=== PATIENT | female | born 1960 | race African-American/Black ===

== ENCOUNTER → 2017-03-13 | Outpatient (CLI) | payer MEDICAID | LOC: RAD 10:16 | PROVIDERS: ATTEND Orthopaedic Surgery | DX: M25.552 Pain in left hip (principal); M25.551 Pain in right hip | CPT/HCPCS: 78315; A9561; Q9969 ==

== ENCOUNTER 2017-03-24 11:35 | Day surgery (SDC) | payer MEDICAID ==
[~2017-03-24 11:35] MED LIST: PROPOFOL INJ 200 MG/20 ML VIAL IV ONE
--- NOTE | 2017-03-24 13:03 | Operative Report ---
Operative Report DATE OF SURGERY: 03/24/17 Operative Report: The risks, benefits and alternatives of the procedure including risks of bleeding, perforation requiring surgery are explained to the patient detail and informed consent was obtained. The patient was taken to the endoscopy suite and placed in the left, lateral decubital position. Timeout was called. Propofol medications administered. Rectal examination was done which did not reveal any masses, tears or fissures. An Olympus videoscope was inserted into the patient's rectum. The scope was then attempted to be advanced all the way to the cecum. There was some difficulty and patient had to be placed on her back in the supine position, with abdominal pressure due to a hernia. However the cecum was visualized along with the ileocecal valve as well as the appendiceal office. Photodocumentation is obtained. Prep is fair. The scope was then sequentially pulled back the interventions of the colon including the ascending colon, hepatic flexure, transverse colon, splenic flexure, descending colon and finding to the rectosigmoid portions of the colon. Retroflexion maneuver was performed. PREOPERATIVE DIAGNOSIS: Personal history of polyp, colorectal cancer screening POSTOPERATIVE DIAGNOSIS: Large periumbilical hernia. Diverticulosis. Mild right-sided inflammation status post biopsy. Internal hemorrhoids OPERATION: Colonoscopy with biopsy SURGEON: SANA MELGOZA ANESTHESIA: LMAC TISSUE REMOVED OR ALTERED: Right side colon Mucosal specimen obtained COMPLICATIONS: None. ESTIMATED BLOOD LOSS: None. INTRAOPERATIVE FINDINGS: None. PROCEDURE: Patient tolerated the procedure well. No immediate postprocedure complications are noted. Patient is discharged in good condition. Discharge date 03/24/2017. Discharge diet: Regular. Discharge activity: Regular. 2-3 week follow-up to discuss findings 5 year surveillance colonoscopy We will wait on biopsies Patient instructed to call the office or proceed to the emergency room should there be any further problems or questions. We will need referral for surgical referral for repair of hernia
[2017-03-24 13:25] VITALS: BP 166/96
== END 2017-03-24 13:30 | disposition home or self-care (01) ==
LOC: END 11:35
PROVIDERS: ATTEND Internal Medicine Gastroenterology
PROC: 0DBF8ZX Excision of Right Large Intestine, Via Natural or Artificial Opening Endoscopic, Diagnostic (ICD-10-PCS; principal; 2017-03-24 14:00)
DX: Z12.11 Encounter for screening for malignant neoplasm of colon (principal); K57.30 Diverticulosis of large intestine without perforation or abscess without bleeding; K42.9 Umbilical hernia without obstruction or gangrene; K52.9 Noninfective gastroenteritis and colitis, unspecified; K64.8 Other hemorrhoids; I10 Essential (primary) hypertension; E11.9 Type 2 diabetes mellitus without complications; D64.9 Anemia, unspecified; Z86.73 Personal history of transient ischemic attack (TIA), and cerebral infarction without residual deficits; Z88.0 Allergy status to penicillin; Z79.84 Long term (current) use of oral hypoglycemic drugs
CPT/HCPCS: 45380; 82962; 88305 ×2; J2704; 810

== ENCOUNTER → 2017-10-03 | Outpatient (CLI) | payer MEDICAID ==
[2017-10-03 11:51] LABS: ABSOLUTE EOSINOPHILS # (AUTO) 0.2 10^3/uL (0.0-0.6); ABSOLUTE LYMPHOCYTES (AUTO) 0.8 10^3/uL (0.5-4.7); ABSOLUTE MONOCYTES (AUTO) 0.4 10^3/uL (0.1-1.4); ABSOLUTE NEUT (AUTO) 2.5 10^3/uL (1.7-8.2); BASOPHILS % (AUTO) 0.5 % (0-2); HEMATOCRIT 36.7 % (36.0-47.0); HEMOGLOBIN 12.4 g/dL (12.0-15.5); HGB HCT DIFFERENCE 0.5; LYMPHOCYTES % (AUTO) 20.4 % (13-45); MEAN CORPUSCULAR HEMOGLOBIN 28.6 pg (27.0-33.4); MEAN CORPUSCULAR HGB CONC 33.8 g/dL (32.0-36.0); MEAN CORPUSCULAR VOLUME 85 fl (80-97); MONOCYTES % (AUTO) 11.2 % (3-13); RED BLOOD COUNT 4.34 10^6/uL (3.72-5.28); RED CELL DISTRIBUTION WIDTH 14.1 % (11.5-14.0); SEGMENTED NEUTROPHILS % (AUTO) 62.9 % (42-78); WHITE BLOOD COUNT 3.9 10^3/uL (4.0-10.5)
[2017-10-03 12:32] LABS: ALANINE AMINOTRANSFERASE 34 U/L (9-52); ALBUMIN 4.6 g/dL (3.5-5.0); ALKALINE PHOSPHATASE 150 U/L (38-126); ANION GAP 11 (5-19); ASPARTATE AMINO TRANSFERASE 26 U/L (14-36); BILIRUBIN,DIRECT 0.4 mg/dL (0.0-0.4); BILIRUBIN,TOTAL 0.6 mg/dL (0.2-1.3); BLOOD UREA NITROGEN 18 mg/dL (7-20); CALCIUM 9.9 mg/dL (8.4-10.2); CARBON DIOXIDE 33 mmol/L (22-30); CHLORIDE 99 mmol/L (98-107); CHOLESTEROL 174.98 mg/dL (0-200); Direct HDL 45 mg/dL (>40); GLUCOSE 108 mg/dL (75-110); POTASSIUM 4.2 mmol/L (3.6-5.0); SODIUM 142.9 mmol/L (137-145); TOTAL PROTEIN 8.3 g/dL (6.3-8.2); TRIGLYCERIDES 113 mg/dL (<150)
[2017-10-03 12:43] LABS: DIRECT LDL 91 mg/dL (<100)
== END ==
LOC: OD 10:26
PROVIDERS: ATTEND Internal Medicine
DX: E78.00 Pure hypercholesterolemia, unspecified (principal); Z79.899 Other long term (current) drug therapy; E11.9 Type 2 diabetes mellitus without complications; I10 Essential (primary) hypertension
CPT/HCPCS: 36415; 80053; 80061; 85025

== ENCOUNTER 2018-03-31 14:39 | Emergency (ER) | payer MEDICAID ==
[2018-03-31] MEDS ORDERED: NORMAL SALINE 1000 ML 1,000 ML IV ONE (15:41)
[2018-03-31] MEDS ORDERED: ONDANSETRON HCL INJ/PF 4 MG/2 ML SDV IV ONE (15:47)
--- NOTE | 2018-03-31 15:48 | ER Document Report ---
ED General - General Chief Complaint: Vomiting Stated Complaint: WEAKNESS/VOMITING Time Seen by Provider: 03/31/18 15:31 Mode of Arrival: Medic Information source: Patient Notes: 58-year-old female with type 2 diabetes, hypertension, glaucoma, previous CVA and DVT presents with complaint of generalized weakness. Patient states that she has been experiencing nausea and vomiting for approximately 1 week. She states that she is gone many days without tolerating anything by mouth. She states that 2 days prior to arrival she started to experience diarrhea. She denies any blood in her stool or emesis. Patient states that she had a fall 4 days prior to arrival and was unable to get herself off the floor and required assistance from her aide and son. She denies any head injury, loss of consciousness. She denies chest pain, shortness of breath. TRAVEL OUTSIDE OF THE [place] IN LAST 30 DAYS: No - HPI Onset: Last week Onset/Duration: Gradual Quality of pain: No pain Associated symptoms: None, Diarrhea, Nausea, Vomiting, Weakness. denies: Chest pain, Shortness of breath Exacerbated by: Denies Relieved by: Denies Similar symptoms previously: No Recently seen / treated by doctor: Yes - Related Data Allergies/Adverse Reactions: Penicillins Allergy (Mild, Verified 03/31/18 15:03) Rash, itch Past Medical History - General Information source: Patient, [facility] Records - Social History Smoking Status: Former Smoker Frequency of alcohol use: Occasional Drug Abuse: None Lives with: Family Family History: Reviewed & Not Pertinent Patient has suicidal ideation: No Patient has homicidal ideation: No - Past Medical History Cardiac Medical History: Reports: Hx Hypertension Denies: Hx Coronary Artery Disease, Hx Heart Attack Pulmonary Medical History: Denies: Hx Asthma, Hx Bronchitis, Hx COPD, Hx Pneumonia Neurological Medical History: Reports: Hx Cerebrovascular Accident - When she had right hip sx, pt states no deficits. Denies: Hx Seizures Endocrine Medical History: Reports: Hx Diabetes Mellitus Type 2 GI Medical History: Reports: Hx Hiatal Hernia Musculoskeltal Medical History: Reports Hx Arthritis - Back and hips Past Surgical History: Reports: Hx Appendectomy, Hx Hysterectomy, Hx Orthopedic Surgery - Back x2 and bilateral hip, Hx Tubal Ligation. Denies: Hx Pacemaker - Immunizations Hx Diphtheria, Pertussis, Tetanus Vaccination: No Review of Systems - Review of Systems Notes: REVIEW OF SYSTEMS: CONSTITUTIONAL : Denies fever, chills, or sweats. Denies weight loss, recent hospitalizations. She is complaining of generalized weakness EENT: Denies visual changes, eye pain. Denies nasal or sinus congestion or discharge. Denies sore throat, oral lesions, difficulty swallowing. CARDIOVASCULAR: Denies chest pain. Denies palpitations or racing or irregular heart beat. Denies lower extremity edema. RESPIRATORY: Denies cough, cold, or chest congestion. Denies shortness of breath, difficulty breathing, or wheezing. GASTROINTESTINAL: Denies abdominal pain or distention. Denies nausea, vomiting , or diarrhea. Denies blood in vomitus, stools, or per rectum. Denies black, tarry stools. Denies constipation. GENITOURINARY: Denies difficulty urinating, painful urination, burning, frequency, blood in urine, or vaginal discharge. MUSCULOSKELETAL: Denies back or neck pain or stiffness. Denies joint pain or swelling. SKIN: Denies rash, lesions or sores. HEMATOLOGIC : Denies easy bruising or bleeding. LYMPHATIC: Denies swollen, enlarged glands. NEUROLOGICAL: Denies confusion or altered mental status. Denies passing out or loss of consciousness. Denies dizziness or lightheadedness. Denies headache. Denies weakness or paralysis or loss of use of either side. Denies problems with gait or speech. Denies sensory loss, numbness, or tingling. Denies seizures. PSYCHIATRIC: Denies anxiety or stress. Denies depression, suicidal ideation, or homicidal ideation. Physical Exam - Vital signs Vitals: Temp Pulse Resp BP Pulse Ox 100.2 F 106 H 20 154/79 H 96 03/31/18 15:00 03/31/18 15:00 03/31/18 15:00 03/31/18 15:03/31/18 15:00 - Notes Notes: PHYSICAL EXAMINATION: GENERAL: Well-appearing, well-nourished and in no acute distress. HEAD: Atraumatic, normocephalic. EYES: Pupils equal round and reactive to light, extraocular movements intact, conjunctiva are normal. ENT: Nares patent, oropharynx clear without exudates. Moist mucous membranes. NECK: Normal range of motion, supple without lymphadenopathy LUNGS: Breath sounds clear to auscultation bilaterally and equal. No wheezes rales or rhonchi. HEART: Regular rate and rhythm without murmurs ABDOMEN: Soft, nontender, nondistended abdomen. No guarding, no rebound. No masses appreciated. Female : deferred Musculoskeletal: Normal range of motion, no pitting or edema. No cyanosis. NEUROLOGICAL: Cranial nerves grossly intact. Normal speech, normal gait. Normal sensory, motor exams PSYCH: Normal mood, normal affect. SKIN: Warm, Dry, normal turgor, no rashes or lesions noted. Course - Re-evaluation Re-evalutation: Laboratory 03/31/18 03/31/18 03/31/18 17:35 17:35 17:35 WBC 10.3 RBC 3.99 Hgb 11.5 L Hct 34.3 L MCV 86 MCH 28.8 MCHC 33.5 RDW 13.9 Plt Count 197 Seg Neutrophils % 85.1 H Lymphocytes % 7.3 L Monocytes % 6.8 Eosinophils % 0.6 Basophils % 0.2 Absolute Neutrophils 8.8 H Absolute Lymphocytes 0.8 Absolute Monocytes 0.7 Absolute Eosinophils 0.1 Absolute Basophils 0.0 D-Dimer Sodium 135.8 L Potassium 4.1 Chloride 90 L Carbon Dioxide 35 H Anion Gap 11 BUN 23 H Creatinine 1.05 Est GFR ( Amer) > 60 Est GFR (Non-Af Amer) 54 L Glucose 270 H Calcium 9.3 Total Bilirubin 0.7 Direct Bilirubin 0.5 H Neonat Total Bilirubin Not Reportable Neonat Direct Bilirubin Not Reportable Neonat Indirect Bili Not Reportable AST 28 ALT 34 Alkaline Phosphatase 149 H Creatine Kinase 36 CK-MB (CK-2) 0.83 Troponin I 0.034 NT-Pro-B Natriuret Pep 1020 H Total Protein 7.6 Albumin 3.3 L Lipase 60.6 03/31/18 17:35 WBC RBC Hgb Hct MCV MCH MCHC RDW Plt Count Seg Neutrophils % Lymphocytes % Monocytes % Eosinophils % Basophils % Absolute Neutrophils Absolute Lymphocytes Absolute Monocytes Absolute Eosinophils Absolute Basophils D-Dimer 17.87 H Sodium Potassium Chloride Carbon Dioxide Anion Gap BUN Creatinine Est GFR ( Amer) Est GFR (Non-Af Amer) Glucose Calcium Total Bilirubin Direct Bilirubin Neonat Total Bilirubin Neonat Direct Bilirubin Neonat Indirect Bili AST ALT Alkaline Phosphatase Creatine Kinase CK-MB (CK-2) Troponin I NT-Pro-B Natriuret Pep Total Protein Albumin Lipase Head CT 03/31/18 15:47 IMPRESSION: Microvascular ischemia with atrophy. Left middle cerebral artery infarct. No acute intracranial imaging findings. EVIDENCE OF ACUTE STROKE: NO. Chest/Abdomen CTA 03/31/18 16:58 IMPRESSION: Saddle embolus with thrombus in the lower lobe and upper lobe pulmonary arteries. Lovenox was administered. 03/31/18 19:44 Family snd patient informed of the CT findings of a saddle embolus. Requesting transfer to [facility]. 03/31/18 19:45 03/31/18 20:20 Patient accepted by [facility] by Dr. Rebollar. 03/31/18 20:21 58-year-old female with type 2 diabetes, hypertension, glaucoma, previous CVA and DVT presents with complaint of generalized weakness. Patient states that she has been experiencing nausea and vomiting for approximately 1 week. She states that she is gone many days without tolerating anything food or liquid. She states that 2 days prior to arrival she started to experience diarrhea. She denies any blood in her stool or emesis. Patient states that she had a fall 4 days prior to arrival and was unable to get herself off the floor and required assistance from her aide and son. She denies any head injury, loss of consciousness. She denies chest pain, shortness of breath. Patient was seen by myself upon arrival. Vital signs were reviewed. Patient is tachycardic, hypertensive, tachypneic. But not hypoxic or febrile. Patient does not appear toxic or dehydrated. They are in no acute distress. Previous medical records and nursing notes reviewed. Patient has a normal physical exam. No evidence of DVT. She denies any recent travel, surgery, estrogen use, cancer history. Her last DVT was approximately 2 years ago and after a hip replacement surgery she is not currently on any blood thinning medications. Patient does admit to being less active over the last few weeks. EKG was obtained which showed diffuse deep T-wave inversion in the anterior and lateral leads. CTA was obtained and significant for a saddle embolus with thrombus in the lower lobe and upper lobe pulmonary arteries. Lovenox was administered. She has remained stable throughout her ED course. Patient will be transferred via rapid transport to [facility]. 03/31/18 20:22 - Vital Signs Vital signs: Temp Pulse Resp BP Pulse Ox 99.8 F 106 H 27 H 129/60 H 95 03/31/18 18:03 03/31/18 15:00 03/31/18 21:42 03/31/18 21:42 03/31/18 21:42 - Laboratory Result Diagrams: 03/31/18 17:35 03/31/18 17:35 Laboratory results interpreted by me: 03/31/18 03/31/18 03/31/18 17:35 17:35 17:35 Hgb 11.5 L Hct 34.3 L Seg Neutrophils % 85.1 H Lymphocytes % 7.3 L Absolute Neutrophils 8.8 H D-Dimer Sodium 135.8 L Chloride 90 L Carbon Dioxide 35 H BUN 23 H Est GFR (Non-Af Amer) 54 L Glucose 270 H Direct Bilirubin 0.5 H Alkaline Phosphatase 149 H NT-Pro-B Natriuret Pep 1020 H Albumin 3.3 L 03/31/18 17:35 Hgb Hct Seg Neutrophils % Lymphocytes % Absolute Neutrophils D-Dimer 17.87 H Sodium Chloride Carbon Dioxide BUN Est GFR (Non-Af Amer) Glucose Direct Bilirubin Alkaline Phosphatase NT-Pro-B Natriuret Pep Albumin - Diagnostic Test Radiology reviewed: Image reviewed, Reports reviewed - EKG Interpretation by Me EKG shows normal: Sinus rhythm Rate: Tachycardia Voltage: Consistant with LVH When compared to previous EKG there are: Other - Diffuse T-wave inversions in most leads. Critical Care Note - Critical Care Note Total time excluding time spent on procedures (mins): 35 - minutes of critical care time spent in direct contact evaluating and reevaluating the patient, treating symptoms, reviewing labs and studies and speaking with family and consultants excluding any procedures Discharge - Discharge Clinical Impression: Elevated brain natriuretic peptide (BNP) level, Weakness Saddle embolism of pulmonary artery Qualifiers: Chronicity: acute Acute cor pulmonale presence: without acute cor pulmonale Qualified Code(s): I26.92 - Saddle embolus of pulmonary artery without acute cor pulmonale Condition: Fair Disposition: [facility]
[2018-03-31 18:01] LABS: ABSOLUTE EOSINOPHILS # (AUTO) 0.1 10^3/uL (0.0-0.6); ABSOLUTE LYMPHOCYTES (AUTO) 0.8 10^3/uL (0.5-4.7); ABSOLUTE MONOCYTES (AUTO) 0.7 10^3/uL (0.1-1.4); ABSOLUTE NEUT (AUTO) 8.8 10^3/uL (1.7-8.2); BASOPHILS % (AUTO) 0.2 % (0-2); EOSINOPHILS % (AUTO) 0.6 % (0-6); HEMATOCRIT 34.3 % (36.0-47.0); HEMOGLOBIN 11.5 g/dL (12.0-15.5); LYMPHOCYTES % (AUTO) 7.3 % (13-45); MEAN CORPUSCULAR HEMOGLOBIN 28.8 pg (27.0-33.4); MEAN CORPUSCULAR HGB CONC 33.5 g/dL (32.0-36.0); MEAN CORPUSCULAR VOLUME 86 fl (80-97); MONOCYTES % (AUTO) 6.8 % (3-13); PLATELET COUNT 197 10^3/uL (150-450); RED BLOOD COUNT 3.99 10^6/uL (3.72-5.28); RED CELL DISTRIBUTION WIDTH 13.9 % (11.5-14.0); SEGMENTED NEUTROPHILS % (AUTO) 85.1 % (42-78); TOTAL CELLS COUNTED % (AUTO) 100 %; WHITE BLOOD COUNT 10.3 10^3/uL (4.0-10.5)
[2018-03-31 18:07] LABS: ALANINE AMINOTRANSFERASE 34 U/L (9-52); ALBUMIN 3.3 g/dL (3.5-5.0); ALKALINE PHOSPHATASE 149 U/L (38-126); ANION GAP 11 (5-19); ASPARTATE AMINO TRANSFERASE 28 U/L (14-36); BILIRUBIN,DIRECT 0.5 mg/dL (0.0-0.4); BILIRUBIN,TOTAL 0.7 mg/dL (0.2-1.3); BLOOD UREA NITROGEN 23 mg/dL (7-20); CALCIUM 9.3 mg/dL (8.4-10.2); CARBON DIOXIDE 35 mmol/L (22-30); CHLORIDE 90 mmol/L (98-107); CREATINE KINASE 36 U/L (30-135); GLUCOSE 270 mg/dL (75-110); LIPASE 60.6 U/L (23-300); POTASSIUM 4.1 mmol/L (3.6-5.0); SODIUM 135.8 mmol/L (137-145); TOTAL PROTEIN 7.6 g/dL (6.3-8.2)
[2018-03-31 18:19] LABS: CREATINE KINASE MB 0.83 ng/mL (<4.55)
[2018-03-31 18:24] LABS: TROPONIN I 0.034 ng/mL
[2018-03-31] MEDS ORDERED: ENOXAPARIN SODIUM INJ 150 MG/1 ML DISP.SYRIN SUBCUT ONE (19:20)
--- NOTE | 2018-03-31 19:33 | RADIOLOGY REPORT (SQ) ---
EXAM DESCRIPTION: CTA CHEST COMPLETED DATE/TIME: 03/31/2018 6:57 pm REASON FOR STUDY: tachycardia/ ams/ ekg changes COMPARISON: None. TECHNIQUE: CT scan of the chest performed using helical scanning technique with dynamic intravenous contrast injection. Images reviewed with lung, soft tissue and bone windows. Reconstructed coronal and sagittal MPR images reviewed. Additional 3 dimensional post-processing performed to develop Maximal Intensity Projection images (GA P). All images stored on PACS. All CT scanners at this facility use dose modulation, iterative reconstruction, and/or weight based d osing when appropriate to reduce radiation dose to as low as reasonably achievable (ALARA). [facility]: Dose Right [facility]: CareDose [facility]: Dose Right [facility]: Teradose 4D [facility]: [employer] CONTRAST TYPE AND DOSE: contrast/concentration: Isovue 370.00 mg/ml; Total Contrast Delivered: 65.0 ml; Total Saline Delivered: 102.0 ml Contrast bolus optimized for the pulmonary arteries. Not diagnostic for the aorta. RENAL FUNCTION: BUN 23 creatinine 1.05 RADIATION DOSE: CT Rad equipment meets quality standard of care and radiation dose reduction techniq ues were employed. CTDIvol: 16.5 - 29.8 mGy. DLP: 1013 mGy-cm. . LIMITATIONS: None. FINDINGS: LUNGS AND PLEURA: No masses, infiltrates, pneumothorax. No pleural effusions, calcificati ons. AORTA AND GREAT VESSELS: No aneurysm. Contrast bolus not optimized for the aorta. HEART: No pericardial effusion. Moderate to marked coronary artery calcifications. PULMONARY ARTERIES: A saddle embolus is present. Thrombus is present in the lower lobe and upper lob e pulmonary arteries. HILAR AND MEDIASTINAL STRUCTURES: No identified masses or abnormal nodes. HARDWARE: None in the chest. UPPER ABDOMEN: No significant findings. Limited exam. THYROID AND OTHER SOFT TISSUES: No masses. No adenopathy. BONES: Lower thoracic/lumbar rods. 3D MIPS: Confirm above findings. OTHER: No other significant finding. IMPRESSION: Saddle embolus with thrombus in the lower lobe and upper lobe pulmonary arteries. COMMENT: Quality ID # [id number]: Final reports with documentation of one or more dose reduction techniques (e.g., Automated exposure control, adjustment of the mA and/or kV according to patient size, use of iterative reconstruction technique) TECHNICAL DOCUMENTATION: JOB ID: [id number]- All Rights Reserved Reading location - IP/workstation name: [email or web address]
--- NOTE | 2018-03-31 19:37 | RADIOLOGY REPORT (SQ) ---
EXAM DESCRIPTION: CT HEAD WITHOUT COMPLETED DATE/TIME: 03/31/2018 6:57 pm REASON FOR STUDY: Unwitnessed fall COMPARISON: None. TECHNIQUE: Axial images acquired through the brain without intravenous contrast. Images reviewed wi th bone, brain and subdural windows. Additional sagittal and coronal reconstructions were generated. Images stored on PACS. All CT scanners at this facility use dose modulation, iterative reconstruction, and/or weight based d osing when appropriate to reduce radiation dose to as low as reasonably achievable (ALARA). [facility]: Dose Right [facility]: CareDose [facility]: Dose Right [facility]: Teradose 4D [facility]: [employer] RADIATION DOSE: CT Rad equipment meets quality standard of care and radiation dose reduction techniq ues were employed. CTDIvol: 53.2 mGy. DLP: 991 mGy-cm. mGy. LIMITATIONS: None. FINDINGS: VENTRICLES: Prominent. CEREBRUM: Cortical atrophy. Encephalomalacia in the distribution of the left middle cerebral artery. No acute hemorrhage or infarction. Areas of low density in the white matter most likely chronic sma ll vessel ischemic changes. CEREBELLUM: No masses. No hemorrhage. No alteration of density. No evidence for acute infarction. EXTRAAXIAL SPACES: No fluid collections. No masses. ORBITS AND GLOBE: No intra- or extraconal masses. Normal contour of globe without masses. CALVARIUM: No fracture. PARANASAL SINUSES: No fluid or mucosal thickening. SOFT TISSUES: No mass or hematoma. OTHER: No other significant finding. IMPRESSION: Microvascular ischemia with atrophy. Left middle cerebral artery infarct. No acute int racranial imaging findings. EVIDENCE OF ACUTE STROKE: NO. COMMENT: Quality ID # [id number]: Final reports with documentation of one or more dose reduction techniques (e.g., Automated exposure control, adjustment of the mA and/or kV according to patient size, use of iterative reconstruction technique) TECHNICAL DOCUMENTATION: JOB ID: [id number] [email or web address]- All Rights Reserved Reading location - IP/workstation name: [email or web address]
[2018-03-31 21:44] VITALS: BP 129/60
--- NOTE | 2018-03-31 23:43 | EKG REPORT ---
SEVERITY:- ABNORMAL ECG - SINUS TACHYCARDIA LVH WITH SECONDARY REPOLARIZATION ABNORMALITY ABNORMAL T, PROBABLE ISCHEMIA, LATERAL LEADS : Confirmed by: Mannie Mullen 31-Mar-2018 23:41:38
== END 2018-03-31 21:55 | disposition short-term general hospital (02) ==
LOC: ER 14:39
DX: I26.02 Saddle embolus of pulmonary artery with acute cor pulmonale (principal); R79.89 Other specified abnormal findings of blood chemistry; I10 Essential (primary) hypertension; E11.9 Type 2 diabetes mellitus without complications; R11.2 Nausea with vomiting, unspecified; R19.7 Diarrhea, unspecified; R00.0 Tachycardia, unspecified; R06.82 Tachypnea, not elsewhere classified; I67.82 Cerebral ischemia; Z91.81 History of falling; Z88.0 Allergy status to penicillin; Z87.891 Personal history of nicotine dependence; Z86.73 Personal history of transient ischemic attack (TIA), and cerebral infarction without residual deficits; Z86.718 Personal history of other venous thrombosis and embolism
CPT/HCPCS: 93005; 99291; 96372; 96360; 36415; 82553; 82550; 83690; 85025; 80053; 84484; 85379; 83880; 70450; 71275; 93010; J3490; J2405; J7030

== ENCOUNTER 2018-10-05 16:52 | Emergency (ER) | payer MEDICAID ==
[2018-10-05] MEDS ORDERED: ASPIRIN 81 MG TABLET, CHEWABLE PO ONE (18:31)
--- NOTE | 2018-10-05 18:32 | ER Document Report ---
ED Medical Screen (RME) - General Chief Complaint: Chest Pain Stated Complaint: CHEST PAIN Time Seen by Provider: 10/05/18 18:26 Mode of Arrival: Wheelchair Information source: Patient Notes: 58-year-old female with a history of VTE (Eliqui), diabetes, CVA who presents to the emergency room after episode of chest pain between 130 and 3:15 PM today. Patient states that it was sometimes sharp and sometimes dull. She states she felt short of breath at the time. Currently she is been chest pain- free. TRAVEL OUTSIDE OF THE [place] IN LAST 30 DAYS: No - Related Data Allergies/Adverse Reactions: Penicillins Allergy (Mild, Verified 03/31/18 15:03) Rash, itch Past Medical History - Past Medical History Cardiac Medical History: Reports: Hx Hypertension Denies: Hx Coronary Artery Disease, Hx Heart Attack Pulmonary Medical History: Denies: Hx Asthma, Hx Bronchitis, Hx COPD, Hx Pneumonia Neurological Medical History: Reports: Hx Cerebrovascular Accident - When she had right hip sx, pt states no deficits. Denies: Hx Seizures Endocrine Medical History: Reports: Hx Diabetes Mellitus Type 2 Renal/ Medical History: Denies: Hx Peritoneal Dialysis GI Medical History: Reports: Hx Hiatal Hernia Musculoskeltal Medical History: Reports Hx Arthritis - Back and hips Past Surgical History: Reports: Hx Appendectomy, Hx Hysterectomy, Hx Orthopedic Surgery - Back x2 and bilateral hip, Hx Tubal Ligation. Denies: Hx Pacemaker - Immunizations Hx Diphtheria, Pertussis, Tetanus Vaccination: No Physical Exam - Vital signs Vitals: Temp Pulse Resp BP Pulse Ox 98.5 F 98 14 155/90 H 100 10/05/18 17:11 10/05/18 17:11 10/05/18 17:11 10/05/18 17:11 10/05/18 17:11 Course - Vital Signs Vital signs: Temp Pulse Resp BP Pulse Ox 98.5 F 98 14 155/90 H 100 10/05/18 17:11 10/05/18 17:11 10/05/18 17:11 10/05/18 17:11 10/05/18 17:11
--- NOTE | 2018-10-05 18:38 | EKG REPORT ---
SEVERITY:- ABNORMAL ECG - SINUS RHYTHM PROBABLE LVH WITH SECONDARY REPOL ABNRM : Confirmed by: Mannie Mullen 05-Oct-2018 18:37:04
--- NOTE | 2018-10-05 19:03 | RADIOLOGY REPORT (SQ) ---
EXAM DESCRIPTION: CHEST SINGLE VIEW COMPLETED DATE/TIME: 10/05/2018 6:54 pm REASON FOR STUDY: cp COMPARISON: 12/24/2010 EXAM PARAMETERS: NUMBER OF VIEWS: One view. TECHNIQUE: Single frontal radiographic view of the chest acquired. RADIATION DOSE: NA LIMITATIONS: None. FINDINGS: LUNGS AND PLEURA: No opacities, masses or pneumothorax. No pleural effusion. MEDIASTINUM AND HILAR STRUCTURES: No masses. Contour normal. HEART AND VASCULAR STRUCTURES: Heart normal in size. Normal vasculature. BONES: No acute findings. HARDWARE: None in the chest. OTHER: No other significant finding. IMPRESSION: NO ACUTE RADIOGRAPHIC FINDING IN THE CHEST. TECHNICAL DOCUMENTATION: JOB ID: [id number] [employer]- All Rights Reserved Reading location - IP/workstation name: [email or web address]
[2018-10-05 19:20] LABS: ABSOLUTE EOSINOPHILS # (AUTO) 0.1 10^3/uL (0.0-0.6); ABSOLUTE LYMPHOCYTES (AUTO) 0.7 10^3/uL (0.5-4.7); ABSOLUTE MONOCYTES (AUTO) 0.2 10^3/uL (0.1-1.4); ABSOLUTE NEUT (AUTO) 2.1 10^3/uL (1.7-8.2); BASOPHILS % (AUTO) 0.4 % (0-2); HEMATOCRIT 35.6 % (36.0-47.0); HEMOGLOBIN 11.8 g/dL (12.0-15.5); LYMPHOCYTES % (AUTO) 21.9 % (13-45); MEAN CORPUSCULAR HEMOGLOBIN 28.3 pg (27.0-33.4); MEAN CORPUSCULAR HGB CONC 33.2 g/dL (32.0-36.0); MEAN CORPUSCULAR VOLUME 85 fl (80-97); MONOCYTES % (AUTO) 7.6 % (3-13); PLATELET COUNT 150 10^3/uL (150-450); RED BLOOD COUNT 4.18 10^6/uL (3.72-5.28); SEGMENTED NEUTROPHILS % (AUTO) 66.1 % (42-78); TOTAL CELLS COUNTED % (AUTO) 100 %; WHITE BLOOD COUNT 3.3 10^3/uL (4.0-10.5)
[2018-10-05 19:28] LABS: ALANINE AMINOTRANSFERASE 22 U/L (9-52); ALBUMIN 4.6 g/dL (3.5-5.0); ALKALINE PHOSPHATASE 183 U/L (38-126); ANION GAP 11 (5-19); ASPARTATE AMINO TRANSFERASE 40 U/L (14-36); BILIRUBIN,DIRECT 0.4 mg/dL (0.0-0.4); BILIRUBIN,TOTAL 0.7 mg/dL (0.2-1.3); BLOOD UREA NITROGEN 17 mg/dL (7-20); CALCIUM 9.9 mg/dL (8.4-10.2); CARBON DIOXIDE 32 mmol/L (22-30); CHLORIDE 101 mmol/L (98-107); CREATINE KINASE 35 U/L (30-135); GLUCOSE 150 mg/dL (75-110); POTASSIUM 3.6 mmol/L (3.6-5.0); SODIUM 144.4 mmol/L (137-145); TOTAL PROTEIN 8.9 g/dL (6.3-8.2)
[2018-10-05 19:40] LABS: CREATINE KINASE MB 0.51 ng/mL (<4.55)
[2018-10-05 19:41] LABS: TROPONIN I < 0.012 ng/mL
--- NOTE | 2018-10-05 22:52 | ER Document Report ---
ED General - General Chief Complaint: Chest Pain Stated Complaint: CHEST PAIN Time Seen by Provider: 10/05/18 18:26 Mode of Arrival: Wheelchair Notes: Patient is a 58-year-old female who comes in complaining of intermittent chest pain over the last week. No history of heart disease or lung problems. Patient does have a history of clots in her legs and has been on Eliquis since April. Denies missing any doses. Denies any trouble breathing. Pain is often worse with movement. Patient denies any recent falls or trauma. No other symptoms. Mostly right-sided. TRAVEL OUTSIDE OF THE [place] IN LAST 30 DAYS: No - Related Data Allergies/Adverse Reactions: Penicillins Allergy (Mild, Verified 03/31/18 15:03) Rash, itch Past Medical History - General Information source: Patient - Social History Smoking Status: Never Smoker Chew tobacco use (# tins/day): No Frequency of alcohol use: None Drug Abuse: None Family History: Reviewed & Not Pertinent Patient has suicidal ideation: No Patient has homicidal ideation: No - Past Medical History Cardiac Medical History: Reports: Hx Hypertension Denies: Hx Coronary Artery Disease, Hx Heart Attack Pulmonary Medical History: Denies: Hx Asthma, Hx Bronchitis, Hx COPD, Hx Pneumonia Neurological Medical History: Reports: Hx Cerebrovascular Accident - When she had right hip sx, pt states no deficits. Denies: Hx Seizures Endocrine Medical History: Reports: Hx Diabetes Mellitus Type 2 Renal/ Medical History: Denies: Hx Peritoneal Dialysis GI Medical History: Reports: Hx Hiatal Hernia Musculoskeletal Medical History: Reports Hx Arthritis - Back and hips Past Surgical History: Reports: Hx Appendectomy, Hx Hysterectomy, Hx Orthopedic Surgery - Back x2 and bilateral hip, Hx Tubal Ligation. Denies: Hx Pacemaker - Immunizations Hx Diphtheria, Pertussis, Tetanus Vaccination: No Review of Systems - Review of Systems Constitutional: No symptoms reported EENT: No symptoms reported Cardiovascular: See HPI Respiratory: No symptoms reported Gastrointestinal: No symptoms reported Genitourinary: No symptoms reported Female Genitourinary: No symptoms reported Musculoskeletal: No symptoms reported Skin: No symptoms reported Hematologic/Lymphatic: No symptoms reported Neurological/Psychological: No symptoms reported Physical Exam - Vital signs Vitals: Temp Pulse Resp BP Pulse Ox 98.5 F 98 14 155/90 H 100 10/05/18 17:11 10/05/18 17:11 10/05/18 17:11 12/03/18 17:11 10/05/18 17:11 Interpretation: Normal - General General appearance: Appears well, Alert - HEENT Head: Normocephalic, Atraumatic Eyes: Normal Pupils: PERRL - Respiratory Respiratory status: No respiratory distress Chest status: Nontender Breath sounds: Normal Chest palpation: Normal - Cardiovascular Rhythm: Regular Heart sounds: Normal auscultation Murmur: No - Abdominal Inspection: Normal Distension: No distension Bowel sounds: Normal Tenderness: Nontender Organomegaly: No organomegaly - Back Back: Normal, Nontender - Extremities General upper extremity: Normal inspection, Nontender, Normal color, Normal ROM , Normal temperature General lower extremity: Normal inspection, Nontender, Normal color, Normal ROM , Normal temperature, Normal weight bearing. No: Hiro's sign - Neurological Neuro grossly intact: Yes Cognition: Normal Orientation: AAOx4 Zachariah Coma Scale Eye Opening: Spontaneous [place] Coma Scale Verbal: Oriented [place] Coma Scale Motor: Obeys Commands Wellington Coma Scale Total: 15 Speech: Normal Motor strength normal: LUE, RUE, LLE, RLE Sensory: Normal - Psychological Associated symptoms: Normal affect, Normal mood - Skin Skin Temperature: Warm Skin Moisture: Dry Skin Color: Normal Course - Re-evaluation Re-evalutation: 10/05/18 Patient with no chest pain in ER. No acute findings on EKG. Troponin negative x2. Intermittent chest pain. History of DVT but patient is on Eliquis and has been on Eliquis with no new leg swelling. Exam is benign. Patient is at baseline. Pulses are intact. No pitting edema of legs bilaterally. Patient is to follow-up with her doctor this week and return if she has any further concerns. Understands agrees with plan. Stable for discharge. - Vital Signs Vital signs: Temp Pulse Resp BP Pulse Ox 98.7 F 98 19 149/80 H 98 10/05/18 23:04 10/05/18 17:11 10/05/18 23:04 10/05/18 23:04 10/05/18 23:04 - Laboratory Result Diagrams: 10/05/18 19:02 10/05/18 19:02 Laboratory results interpreted by me: 10/05/18 10/05/18 19:02 19:02 WBC 3.3 L Hgb 11.8 L Hct 35.6 L Carbon Dioxide 32 H Glucose 150 H AST 40 H Alkaline Phosphatase 183 H Total Protein 8.9 H - Diagnostic Test Radiology reviewed: Reports reviewed Discharge - Discharge Clinical Impression: Chest pain Qualifiers: Chest pain type: unspecified Qualified Code(s): R07.9 - Chest pain, unspecified Condition: Stable Disposition: HOME, SELF-CARE Instructions: Chest Pain of Unclear Cause ([facility]) Additional Instructions: Please follow-up with your doctor this week. Please continue to take your blood thinner as prescribed. Return immediately if you have any worsening concerns or symptoms. Referrals: SEA EATON MD [Primary Care Provider] - Follow up tomorrow
[2018-10-05 23:38] VITALS: BP 149/80
== END 2018-10-05 23:20 | disposition home or self-care (01) ==
LOC: ER 16:52
DX: R07.9 Chest pain, unspecified (principal); I10 Essential (primary) hypertension; E11.9 Type 2 diabetes mellitus without complications
CPT/HCPCS: 36415; 71045; 80053; 82550; 82553; 84484; 85025; 93005; 93010; 99285

== ENCOUNTER 2019-10-15 20:27 | Observation (INO) | payer MEDICAID ==
[2019-10-16] MEDS ORDERED: MORPHINE SULFATE 10 MG/ML INJ IV ONE (00:20)
--- NOTE | 2019-10-16 00:40 | ER Document Report ---
ED Extremity Problem, Lower - General TRAVEL OUTSIDE OF THE [place] IN LAST 30 DAYS: No <NAVARROADELAIDAPRATIK R - Last Filed: 10/16/19 07:49> <BRADFORD DIOP M - Last Filed: 10/16/19 15:18> - General Chief Complaint: Leg Pain Stated Complaint: LEG PAIN Time Seen by Provider: 10/15/19 23:58 Primary Care Provider: SEA EATON MD [Primary Care Provider] - Follow up as needed Notes: 59-year-old female presents with bilateral lower leg pain for the past few days. Patient had 3 teeth removed on Friday. Patient states that the right leg is worse than the left leg. Patient denies any injuries. Patient denies any fever. Patient states it is painful to walk on her legs. Patient denies any chest pain or shortness of breath. (PRATIK NAVARRO) - Related Data Allergies/Adverse Reactions: Penicillins Allergy (Mild, Verified 03/31/18 15:03) Rash, itch Past Medical History - Social History Smoking Status: Unknown if Ever Smoked Family History: Reviewed & Not Pertinent Patient has suicidal ideation: No Patient has homicidal ideation: No - Past Medical History Cardiac Medical History: Reports: Hx Hypertension Denies: Hx Coronary Artery Disease, Hx Heart Attack Pulmonary Medical History: Denies: Hx Asthma, Hx Bronchitis, Hx COPD, Hx Pneumonia Neurological Medical History: Reports: Hx Cerebrovascular Accident - When she had right hip sx, pt states no deficits. Denies: Hx Seizures Endocrine Medical History: Reports: Hx Diabetes Mellitus Type 2 Renal/ Medical History: Denies: Hx Peritoneal Dialysis GI Medical History: Reports: Hx Hiatal Hernia Musculoskeletal Medical History: Reports Hx Arthritis - Back and hips Past Surgical History: Reports: Hx Appendectomy, Hx Hysterectomy, Hx Orthopedic Surgery - Back x2 and bilateral hip, Hx Tubal Ligation. Denies: Hx Pacemaker - Immunizations Hx Diphtheria, Pertussis, Tetanus Vaccination: No <PRATIK NAVARRO - Last Filed: 10/16/19 07:49> Review of Systems <PRATIK NAVARRO - Last Filed: 10/16/19 07:49> - Review of Systems Notes: Constitutional: Negative for fever. HENT: Negative for sore throat. Eyes: Negative for visual changes. Cardiovascular: Negative for chest pain. Respiratory: Negative for shortness of breath. Gastrointestinal: Negative for abdominal pain, vomiting or diarrhea. Genitourinary: Negative for dysuria. Musculoskeletal: Positive for bilateral leg pain. Negative for back pain. Skin: Negative for rash. Neurological: Negative for headaches, weakness or numbness. 10 point ROS negative except as marked above and in HPI. (PRATIK NAVARRO) Physical Exam <PRATIK NAVARRO - Last Filed: 10/16/19 07:49> - Vital signs Vitals: Temp Resp 98.4 F 16 10/15/19 20:28 10/15/19 20:28 - Notes Notes: GENERAL: Well-appearing, well-nourished and in no acute distress. HEAD: Atraumatic, normocephalic. EYES: Pupils equal round and reactive to light, extraocular movements intact, sclera anicteric, conjunctiva are normal. NECK: Normal range of motion, supple without lymphadenopathy or JVD. LUNGS: Breath sounds clear to auscultation bilaterally and equal. No wheezes rales or rhonchi. HEART: Regular rate and rhythm without murmurs, rubs or gallops. ABDOMEN: Soft, nontender, normoactive bowel sounds. No guarding, no rebound. No masses appreciated. EXTREMITIES: Normal range of motion, no pitting or edema. No clubbing or cyanosis. Bilateral legs: Mild swelling, no erythema, not hot to touch, nontender to palpation, distal pedal pulses 2+ NEUROLOGICAL: Cranial nerves II through XII grossly intact. Normal speech, normal gait. PSYCH: Normal mood, normal affect. SKIN: Warm, Dry, normal turgor, no rashes or lesions noted. (PRATIK NAVARRO) Course - Laboratory Result Diagrams: 10/16/19 00:56 10/16/19 00:56 <PRATIK NAVARRO - Last Filed: 10/16/19 07:49> - Laboratory Result Diagrams: 10/16/19 00:56 10/16/19 00:56 <BRADFORD DIOP - Last Filed: 10/16/19 15:18> - Re-evaluation Re-evalutation: 10/16/19 59-year-old female presents with bilateral lower leg pain for the past few days. Patient recently had surgery to her on Friday. Patient is nontoxic, well-appearing. Patient's legs are mildly swollen with no erythema/hot to touch. Distal neurovascular intact. X-rays of tib-fib bilaterally ordered. Ultrasound duplex ordered. Lab work also ordered. Morphine ordered for pain control. 10/16/19 01:30 Hemoglobin 6.9. 2 units of RBC ordered. (RAYPRATIK R) 10/16/19 8:14 Assumed care of patient from MONICA Navarro. We are pending 2 units of blood to be given for the patient for a hemoglobin of 6.9. As well as Doppler study of bilateral legs. Patient apparently had a tooth extraction on Friday and has been having bleeding from the mouth with clotting for several days. Today she is not bleeding nearly as much or at all in the emergency department. She does have a history of DVT and is on Eliquis 5 mg twice daily typically. She did stop the Eliquis per her daughter for at least 1 day only for the extractions. She has resumed the Eliquis since then. Daughter is not completely sure if she held the Eliquis for longer or not. Attempts to get in touch with dentist who performed the extractions were unsuccessful. Received report from rn cardiovascular about DVT study. There is an acute popliteal DVT in the right leg. Discussed the patient with Dr. Peterson, ER attending. We agree that since the patient is requiring blood but also is going to be needing treatment for DVT, that she will need admission to the hospital. Spoke with MONICA ribeiro, hospitalist MONICA. He agrees with plan for admission. He is aware of patient's hemoglobin and hematocrit today as well as acute kidney injury and also of the acute DVT in her leg. He is aware that patient is getting 2 units of blood and we are still pending a repeat CBC. He is aware of her tooth extraction and that she has stasis in her mouth currently. He is also aware that she had a negative Hemoccult on my exam today. He would like for the patient to go to a telemetry bed and he will see her in the emergency department shortly. Impression: Anemia with weakness with acute DVT. Plan for admission for further management of the patient. (BRADFORD DIOP) - Vital Signs Vital signs: Temp Pulse Resp BP Pulse Ox 98.5 F 98 19 130/69 H 99 10/16/19 13:17 10/16/19 13:10 10/16/19 13:17 10/16/19 13:17 10/16/19 13:10 - Laboratory Laboratory results interpreted by me: 10/16/19 10/16/19 10/16/19 00:56 00:56 00:56 RBC 2.34 L Hgb 6.9 L Hct 20.5 L RDW 15.2 H Plt Count 109 L PT 17.5 H BUN 58 H Creatinine 1.93 H Est GFR ( Amer) 32 L Est GFR (MDRD) Non-Af 26 L Glucose 290 H AST 43 H Albumin 3.2 L Crossmatch 10/16/19 03:51 RBC Hgb Hct RDW Plt Count PT BUN Creatinine Est GFR ( Amer) Est GFR (MDRD) Non-Af Glucose AST Albumin Crossmatch See Detail Discharge <PRATIK NAVARRO - Last Filed: 10/16/19 07:49> - Discharge Admitting Provider: Tim (Hospitalist) Unit Admitted: Telemetry <BRADFORD DIOP - Last Filed: 10/16/19 15:18> - Discharge Clinical Impression: Acute deep vein thrombosis of right popliteal vein Anemia Qualifiers: Anemia type: unspecified type Qualified Code(s): D64.9 - Anemia, unspecified Condition: Stable Disposition: ADMITTED INPATIENT Referrals: SEA EATON MD [Primary Care Provider] - Follow up as needed
[2019-10-16 01:10] LABS: ABSOLUTE LYMPHOCYTES (AUTO) 1.1 10^3/uL (0.5-4.7); ABSOLUTE MONOCYTES (AUTO) 0.4 10^3/uL (0.1-1.4); ABSOLUTE NEUT (AUTO) 5.3 10^3/uL (1.7-8.2); BASOPHILS % (AUTO) 0.2 % (0-2); HEMATOCRIT 20.5 % (36.0-47.0); LYMPHOCYTES % (AUTO) 16.7 % (13-45); MEAN CORPUSCULAR HEMOGLOBIN 29.3 pg (27.0-33.4); MEAN CORPUSCULAR HGB CONC 33.5 g/dL (32.0-36.0); MEAN CORPUSCULAR VOLUME 88 fl (80-97); MONOCYTES % (AUTO) 5.7 % (3-13); PLATELET COUNT 109 10^3/uL (150-450); RED BLOOD COUNT 2.34 10^6/uL (3.72-5.28); RED CELL DISTRIBUTION WIDTH 15.2 % (11.5-14.0); SEGMENTED NEUTROPHILS % (AUTO) 77.4 % (42-78); TOTAL CELLS COUNTED % (AUTO) 100 %; WHITE BLOOD COUNT 6.9 10^3/uL (4.0-10.5)
[2019-10-16 01:15] LABS: HEMOGLOBIN 6.9 g/dL (12.0-15.5)
[2019-10-16 01:17] LABS: INTERNATIONAL RATION (INR) 1.42; PROTHROMBIN TIME 17.5 SEC (11.4-15.4)
[2019-10-16 01:18] LABS: PARTIAL THROMBOPLASTIN TIME 32.6 SEC (23.5-35.8)
[2019-10-16 01:22] LABS: ALBUMIN 3.2 g/dL (3.5-5.0); ALKALINE PHOSPHATASE 118 U/L (38-126); ANION GAP 12 (5-19); ASPARTATE AMINO TRANSFERASE 43 U/L (14-36); BILIRUBIN,DIRECT 0.2 mg/dL (0.0-0.4); BILIRUBIN,TOTAL 0.6 mg/dL (0.2-1.3); BLOOD UREA NITROGEN 58 mg/dL (7-20); CALCIUM 8.9 mg/dL (8.4-10.2); CARBON DIOXIDE 28 mmol/L (22-30); CHLORIDE 98 mmol/L (98-107); CREATINE KINASE 63 U/L (30-135); GLUCOSE 290 mg/dL (75-110); POTASSIUM 3.7 mmol/L (3.6-5.0); TOTAL PROTEIN 6.8 g/dL (6.3-8.2)
--- NOTE | 2019-10-16 01:27 | RADIOLOGY REPORT (SQ) ---
CLINICAL HISTORY: bilateral leg pain COMPARISON: None. 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 Joint spaces are preserved. Soft tissues are unremarkable. IMPRESSION: No acute osseous findings.
[2019-10-16] MEDS ORDERED: NORMAL SALINE 250 ML IV PRN ×2 (01:28)
[2019-10-16] MEDS ORDERED: MAGNESIUM HYDROXIDE SUSP 30 ML UDCUP PO PRN (15:59)
[2019-10-16] MEDS ORDERED: ACETAMINOPHEN 325 MG TABLET PO PRN (15:59)
[2019-10-16] MEDS ORDERED: ONDANSETRON HCL INJ/PF 4 MG/2 ML SDV IV PRN (15:59)
[2019-10-16] MEDS ORDERED: ONDANSETRON 4 MG TAB.RAPDIS PO PRN (15:59)
[2019-10-16] MEDS ORDERED: OXYCODONE-ACETAMINOPHEN 5-325 MG TABLET PO PRN ×2 (15:59→16:41)
[2019-10-16] MEDS ORDERED: DEXTROSE 40% GEL 15 GM TUBE PO PRN ×2 (16:11)
[2019-10-16] MEDS ORDERED: DEXTROSE 50%-WATER 25 GM/50 ML DISP.SYRIN IV PRN ×2 (16:11)
[2019-10-16] MEDS ORDERED: GLUCAGON,HUMAN RECOMB 1 MG INJ IM PRN (16:11)
--- NOTE | 2019-10-16 16:37 | PDOC H&P ---
History of Present Illness Admission Date/PCP: 10/16/19 15:22 SEA EATON MD History of Present Illness: ALEX SANFORD is a 59 year old female comes into the emergency room late last night midnight with reportedly a complaint of bilateral lower leg pain for several days. History is somewhat complicated however because on 10/12/2019, patient had 3 teeth extracted by the dentist. 2 in the left upper and 1 in the right lower jaw. According to the patient's daughter who is in the room the dentist told her that there were no complications or problems. However when the patient went home that night she started having a lot of bleeding with "clots" from her mouth, well as pain, so much so that she went back to the dentist Friday morning complaining of the clots. Patient continued to have some bleeding Friday and from her mouth, but no bleeding on Friday. Last night because the patient was so weak in her legs that she could not get up and ambulate she came to the emergency room. Patient had no complaints of chest pain or shortness of breath. Patient has a past medical history of having had DVTs in her legs arms to what sounds to be pulmonary emboli x2 as well. According to the patient and her daughter she has been placed on Eliquis years ago but never anything prior to Eliquis. Patient and her daughter state that she took the Eliquis on Friday, then she took it Friday evening when she came home from the dentist she took it Friday and but no Eliquis yesterday on Friday. So it sounds as though the patient never stopped her Eliquis prior to the procedure or even after the procedure. Today in the emergency room venous Doppler ultrasound shows acute DVT in the right lower extremity. Official reading has not been performed. Patient also has a hemoglobin 6.9 with a hematocrit 20.5, platelets 109,000. She has received 2 units of packed red cells and of ordered another stat CBC as well as a PT/INR and PTT. PT from last night was 17.5 INR 1.42 and PTT was 32.6. Patient and her daughter tell me that she is never had any kind of bleeding abnormality in the past, or clotting problems, the exception of her PE and DVTs in the past. Patient appears medically stable in the ER. I went into great detail with the patient as well as her daughter about the seriousness of this condition. Patient could potentially propagate her clot in her leg and have a PE, which could be fatal. So the patient could continue bleeding and have a massive blood loss. but also her anemia and apparent blood loss from her mouth. I offered to transfer patient to a larger [facility] center. They stated they would like to stay at [place]. I also went over CODE status and she desires Full Code. Past Medical History Cardiac Medical History: Reports: Hypertension, Pulmonary Embolism Denies: Coronary Artery Disease, Myocardial Infarction Pulmonary Medical History: Denies: Asthma, Bronchitis, Chronic Obstructive Pulmonary Disease (COPD), Pneumonia Neurological Medical History: Denies: Seizures Endocrine Medical History: Reports: Diabetes Mellitus Type 2 GI Medical History: Reports: Hiatal Hernia Musculoskeltal Medical History: Reports: Arthritis - Back and hips Hematology: Reports: Anemia Past Surgical History Past Surgical History: Reports: Appendectomy, Hysterectomy, Orthopedic Surgery - Back x2 and bilateral hip, Tubal Ligation Denies: Pacemaker Social History Smoking Status: Unknown if Ever Smoked - Advance Directive Resuscitation Status: Full Code Family History Family History: Reviewed & Not Pertinent Parental Family History Reviewed: No Children Family History Reviewed: No Sibling(s) Family History Reviewed.: No Medication/Allergy Home Medications: Metformin HCl [Glucophage 500 Mg Tablet] 500 mg PO BID 11/20/12 Cyanocobalamin (Vitamin B-12) [B-12] 1,000 mcg PO DAILY 01/28/16 Cyclobenzaprine HCl 10 mg PO TID 01/28/16 Furosemide [Lasix 40 mg Tablet] 40 mg PO QAM 01/28/16 Insulin Glargine,Hum.rec.anlog [Lantus Insulin 100 Unit/1 ml 10 ml] 20 unit SQ QHS 01/28/16 Losartan/Hydrochlorothiazide [Hyzaar 50-12.5 Tablet] 1 tab PO DAILY 01/28/16 Naproxen Sodium [Aleve] 220 mg PO PRN PRN 01/28/16 Potassium Chloride [K-Tab ER] 10 meq PO BID 01/28/16 Ascorbic Acid [Vitamin C] 1,000 mg PO DAILY 03/21/17 Docusate Sodium 100 mg PO BID 03/21/17 Esomeprazole Magnesium [Nexium] 20 mg PO DAILY 03/21/17 Multivitamin [Multivitamins] 1 each PO DAILY 03/21/17 Oxycodone HCl/Acetaminophen [Percocet 10-325 Mg Tablet] 1 each PO TID 03/21/17 Allergies/Adverse Reactions: Penicillins Allergy (Mild, Verified 03/31/18 15:03) Rash, itch Review of Systems Constitutional: PRESENT: weakness. ABSENT: chills, fever(s), headache(s), weight gain, weight loss Cardiovascular: ABSENT: chest pain, dyspnea on exertion, edema, orthropnea, palpitations Respiratory: ABSENT: cough, hemoptysis Musculoskeletal: PRESENT: muscle weakness Neurological: ABSENT: abnormal gait, abnormal speech, confusion, dizziness, focal weakness, syncope Psychiatric: ABSENT: anxiety, depression, homidical ideation, suicidal ideation Physical Exam Vital Signs: Temp Pulse Resp BP Pulse Ox 98.5 F 98 19 130/69 H 99 10/16/19 13:17 10/16/19 13:10 10/16/19 13:17 10/16/19 13:17 10/16/19 13:10 Intake & Output 10/15/19 10/16/19 10/17/19 06:59 06:59 06:59 Intake Total 550 Balance 550 Weight 63.503 kg General appearance: PRESENT: no acute distress Mouth exam: PRESENT: other Teeth exam: PRESENT: other - no active bleeding, dried blood. Edematous upper lip and left cheek Old blood odor Respiratory exam: PRESENT: clear to auscultation sonal. ABSENT: rales, rhonchi, wheezes Cardiovascular exam: PRESENT: RRR. ABSENT: diastolic murmur, rubs, systolic murmur Neurological exam: PRESENT: alert, awake, oriented to person, oriented to place, oriented to time, oriented to situation, CN II-XII grossly intact. ABSENT: motor sensory deficit Psychiatric exam: PRESENT: appropriate affect, normal mood. ABSENT: homicidal ideation, suicidal ideation Results Laboratory Results: 10/16/19 00:56 10/16/19 00:56 10/16/19 10/16/19 10/16/19 00:56 00:56 03:51 WBC 6.9 RBC 2.34 L Hgb 6.9 L Hct 20.5 L MCV 88 MCH 29.3 MCHC 33.5 RDW 15.2 H Plt Count 109 L Seg Neutrophils % 77.4 Sodium 137.9 Potassium 3.7 Chloride 98 Carbon Dioxide 28 Anion Gap 12 BUN 58 H Creatinine 1.93 H Est GFR ( Amer) 32 L Glucose 290 H Calcium 8.9 Total Bilirubin 0.6 AST 43 H Alkaline Phosphatase 118 Total Protein 6.8 Albumin 3.2 L Blood Type A POSITIVE Antibody Screen POSITIVE 10/16/19 00:56 Creatine Kinase 63 Impressions: Tibia/Fibula X-Ray 10/16/19 00:01 IMPRESSION: No acute osseous findings. Assessment and Plan - Diagnosis (1) Acute deep vein thrombosis of right popliteal vein Is this a current diagnosis for this admission?: Yes (2) Anemia Qualifiers: Anemia type: unspecified type Qualified Code(s): D64.9 - Anemia, unspecified Is this a current diagnosis for this admission?: Yes (3) Diabetes Is this a current diagnosis for this admission?: Yes (4) Pulmonary emboli Is this a current diagnosis for this admission?: Yes - Plan Summary Summary: I am going to recheck patient's bloodwork while she is still in the ED following transfusion of 2 units. I have discussed case with Dr. Harris. We will determine when patient should resume her Eliquis, based on whether she has active bleeding. Will cover with sliding scale insulin. Reusme home meds when reconciled by pharmacy. Patient is medically stable. - Time Time Spent with patient: 35 or more minutes
[2019-10-16] MEDS ORDERED: HYDRALAZINE HCL INJ/PF 20 MG/1 ML SDV IV PRN (16:39)
[2019-10-16] MEDS ORDERED: MORPHINE SULFATE 10 MG/ML INJ IV PRN (16:40)
[2019-10-16] MEDS: PANTOPRAZOLE SODIUM 40 MG VIAL IV SCH ×2 (17:23→22:20)
[2019-10-16 18:01] LABS: ABSOLUTE LYMPHOCYTES (AUTO) 0.8 10^3/uL (0.5-4.7); ABSOLUTE MONOCYTES (AUTO) 0.7 10^3/uL (0.1-1.4); ABSOLUTE NEUT (AUTO) 6.4 10^3/uL (1.7-8.2); BASOPHILS % (AUTO) 0.1 % (0-2); EOSINOPHILS % (AUTO) 0.2 % (0-6); HEMATOCRIT 28.1 % (36.0-47.0); LYMPHOCYTES % (AUTO) 10.5 % (13-45); MEAN CORPUSCULAR HEMOGLOBIN 30.1 pg (27.0-33.4); MEAN CORPUSCULAR HGB CONC 34.4 g/dL (32.0-36.0); MEAN CORPUSCULAR VOLUME 87 fl (80-97); MONOCYTES % (AUTO) 8.6 % (3-13); RED BLOOD COUNT 3.22 10^6/uL (3.72-5.28); RED CELL DISTRIBUTION WIDTH 14.4 % (11.5-14.0); SEGMENTED NEUTROPHILS % (AUTO) 80.6 % (42-78); TOTAL CELLS COUNTED % (AUTO) 100 %; WHITE BLOOD COUNT 7.9 10^3/uL (4.0-10.5)
[2019-10-16] MEDS ORDERED: CYCLOBENZAPRINE HCL 10 MG TABLET PO PRN (18:04)
[2019-10-16] MEDS ORDERED: HEPARIN SODIUM,PORCINE/D5W 25,000 UNIT/250 ML RTUINJ IV PRN (18:08)
[2019-10-16 18:21] LABS: PLATELET COUNT 78 10^3/uL (150-450)
[2019-10-16 18:22] LABS: HEMOGLOBIN 9.7 g/dL (12.0-15.5)
[2019-10-16] MEDS ORDERED: HEPARIN SOD (PORCINE) 1,000 UNIT/ML 10 ML VIAL IV ONE (18:30)
[2019-10-16] MEDS: NORMAL SALINE 1000 ML 1,000 ML IV PRN (18:44)
[2019-10-16] MEDS: INSULIN LISPRO 100 UNIT/ML 3 ML VIAL SUBCUT SCH ×2 (18:55→22:21)
[2019-10-16] MEDS ORDERED: HEPARIN SOD (PORCINE) 1,000 UNIT/ML 10 ML VIAL IV PRN (21:09)
[2019-10-16] MEDS ORDERED: ATORVASTATIN CALCIUM 40 MG TABLET PO SCH (22:00)
[2019-10-16] MEDS: CLINDAMYCIN 300 MG/D5W RTU 300 MG/50 ML RTUPB IV SCH (22:22)
[2019-10-16 23:19] LABS: APPEARANCE,URINE CLEAR; BILIRUBIN,URINE NEGATIVE (NEGATIVE); COLOR,URINE YELLOW; GLUCOSE, URINE 150 mg/dL (NEGATIVE); KETONES,URINE NEGATIVE (NEGATIVE); LEUKOCYTE ESTERASE,URINE MODERATE (NEGATIVE); NITRITE,URINE NEGATIVE (NEGATIVE); PROTEIN,URINE NEGATIVE (NEGATIVE); URINE SPECIFIC GRAVITY 1.015
--- NOTE | 2019-10-17 00:56 | XCELERA REPORT ---
[address] [id number] Lower Extremity Venous Evaluation Procedure: Color flow and duplex imaging bilaterally of the veins of the lower extremities as well as the Common Femoral veins. Right Sided Venous Evaluation Abnormal vessel filling, no compression partial Colour flow , normal sized vein with echogenic content , in the Popliteal vein. Other veins normal in appearance. Left Sided Venous Evaluation Normal vessel filling wall to wall, compression and augmentation as well as Colour flow down to the infrageniculate veins. Critical Findings Result called in to CHARMAINE Navarro. Interpretation Summary Subacute or chronic Deep venous thrombosis in the right Popliteal vein. Normal study otherwise. Name: ALEX SANFORD Age: 59 yrs Gender: Female : 1960 Patient Status: Inpatient Patient Location: [address] Study Date: 10/16/2019 01:37 PM Reason For Study: bilateral leg pain/swelling Ordering Physician: PRATIK NAVARRO Performed By: Caroline Sultana : PRATIK NAVARRO > Javier Mendez
[2019-10-17] MEDS: CLINDAMYCIN 300 MG/D5W RTU 300 MG/50 ML RTUPB IV SCH (05:31)
[2019-10-17] MEDS: NORMAL SALINE 1000 ML 1,000 ML IV PRN (05:33)
[2019-10-17 07:06] LABS: INTERNATIONAL RATION (INR) 1.18; PROTHROMBIN TIME 15.1 SEC (11.4-15.4)
[2019-10-17 07:08] LABS: PARTIAL THROMBOPLASTIN TIME 126.6 SEC (23.5-35.8)
[2019-10-17 07:22] LABS: ANION GAP 5 (5-19); BLOOD UREA NITROGEN 46 mg/dL (7-20); CALCIUM 8.3 mg/dL (8.4-10.2); CARBON DIOXIDE 29 mmol/L (22-30); CHLORIDE 105 mmol/L (98-107); GLUCOSE 127 mg/dL (75-110); POTASSIUM 3.8 mmol/L (3.6-5.0)
[2019-10-17 07:34] LABS: ABSOLUTE EOSINOPHILS # (AUTO) 0.1 10^3/uL (0.0-0.6); ABSOLUTE LYMPHOCYTES (AUTO) 1.3 10^3/uL (0.5-4.7); ABSOLUTE MONOCYTES (AUTO) 0.5 10^3/uL (0.1-1.4); ABSOLUTE NEUT (AUTO) 3.6 10^3/uL (1.7-8.2); BASOPHILS % (AUTO) 0.4 % (0-2); EOSINOPHILS % (AUTO) 1.4 % (0-6); HEMATOCRIT 27.9 % (36.0-47.0); HEMOGLOBIN 9.6 g/dL (12.0-15.5); LYMPHOCYTES % (AUTO) 23.2 % (13-45); MEAN CORPUSCULAR HEMOGLOBIN 29.9 pg (27.0-33.4); MEAN CORPUSCULAR HGB CONC 34.3 g/dL (32.0-36.0); MEAN CORPUSCULAR VOLUME 87 fl (80-97); RED BLOOD COUNT 3.21 10^6/uL (3.72-5.28); RED CELL DISTRIBUTION WIDTH 14.6 % (11.5-14.0); TOTAL CELLS COUNTED % (AUTO) 100 %; WHITE BLOOD COUNT 5.5 10^3/uL (4.0-10.5)
[2019-10-17 08:13] LABS: PLATELET COUNT 81 10^3/uL (150-450)
[2019-10-17] MEDS: INSULIN LISPRO 100 UNIT/ML 3 ML VIAL SUBCUT SCH ×2 (09:27→11:37)
[2019-10-17] MEDS: PANTOPRAZOLE SODIUM 40 MG VIAL IV SCH (09:32)
[2019-10-17] MEDS ORDERED: DOCUSATE SODIUM 100 MG CAPSULE PO SCH (10:00)
--- NOTE | 2019-10-17 12:27 | PDOC DISCHARGE SUMMARY ---
Impression - Admit/DC Date/PCP Admission Date/Primary Care Provider: 10/16/19 15:22 SEA EATON MD Discharge Date: 10/17/19 - Discharge Diagnosis (1) Acute deep vein thrombosis of right popliteal vein Is this a current diagnosis for this admission?: Yes (2) Anemia Is this a current diagnosis for this admission?: Yes (3) Diabetes Is this a current diagnosis for this admission?: Yes (4) Pulmonary emboli Is this a current diagnosis for this admission?: Yes - Assessment Summary: I am going to recheck patient's bloodwork while she is still in the ED following transfusion of 2 units. I have discussed case with Dr. Harris. We will determine when patient should resume her Eliquis, based on whether she has active bleeding. Will cover with sliding scale insulin. Reusme home meds when reconciled by pharmacy. Patient is medically stable. After further discussion with Dr. Harris since patient is not actively bleeding for at least 24 hours, and patient does have an active acute DVT I have started her on Heparin to treat DVT. Also patient has actually had a DVT at least once in past. This is safer than restarting Eliquis, although patient will restart her Eliquis when discharged home. Patient and daughter have been told of risk and benefits of treatment and seem to understand complexity of issue. Labs will be checked on frequent basis. 10/17/2019 Patient's hemoglobin has come up today to 9.6, last night at 1734 hrs. it was 9.7 Patient feels well with no sign of active bleeding from her dental procedure or anywhere else. This morning patient's PT was 15.1 INR 1.18 and PTT was 126.6 although patient was still on heparin She was discharged home this morning in good condition she was told to resume the Eliquis tonight Sent her out on a prescription of clindamycin 300 mg 15 tablets for the next 5 days. This was for her dental extraction. She will follow-up with her dentist next week as well as her primary care provider - Additional Information Resuscitation Status: Full Code Discharge Diet: Diabetic, Other (Comments) Discharge Activity: Balance Activity w/Rest, Bedrest, Keep Legs Elevated, Other Referrals: SEA EATON MD [Primary Care Provider] - Follow up as needed History of Present Illiness History of Present Illness: ALEX SANFORD is a 59 year old female comes into the emergency room late last night midnight with reportedly a complaint of bilateral lower leg pain for several days. History is somewhat complicated however because on 10/12/2019, patient had 3 teeth extracted by the dentist. 2 in the left upper and 1 in the right lower jaw. According to the patient's daughter who is in the room the dentist told her that there were no complications or problems. However when the patient went home that night she started having a lot of bleeding with "clots" from her mouth, well as pain, so much so that she went back to the dentist Friday morning complaining of the clots. Patient continued to have some bleeding Friday and from her mouth, but no bleeding on Friday. Last night because the patient was so weak in her legs that she could not get up and ambulate she came to the emergency room. Patient had no complaints of chest pain or shortness of breath. Patient has a past medical history of having had DVTs in her legs arms to what sounds to be pulmonary emboli x2 as well. According to the patient and her daughter she has been placed on Eliquis years ago but never anything prior to Eliquis. Patient and her daughter state that she took the Eliquis on Friday, then she took it Friday evening when she came home from the dentist she took it Friday and but no Eliquis yesterday on Friday. So it sounds as though the patient never stopped her Eliquis prior to the procedure or even after the procedure. Today in the emergency room venous Doppler ultrasound shows acute DVT in the [facility] lower extremity. Official reading has not been performed. Patient also has a hemoglobin 6.9 with a hematocrit 20.5, platelets 109,000. She has received 2 units of packed red cells and of ordered another stat CBC as well as a PT/INR and PTT. PT from last night was 17.5 INR 1.42 and PTT was 32.6. Patient and her daughter tell me that she is never had any kind of bleeding abnormality in the past, or clotting problems, the exception of her PE and DVTs in the past. Patient appears medically stable in the ER. I went into great detail with the patient as well as her daughter about the seriousness of this condition. Patient could potentially propagate her clot in her leg and have a PE, which could be fatal. So the patient could continue bleeding and have a massive blood loss. but also her anemia and apparent blood loss from her mouth. I offered to [facility] They stated they would like to stay at [facility]. I also went over CODE status and she desires Full Code. Physical Exam Vital Signs: Temp Pulse Resp BP Pulse Ox 98.4 F 95 20 132/68 H 97 10/17/19 11:42 10/17/19 11:42 10/17/19 11:42 10/17/19 11:42 10/17/19 11:42 Intake & Output 10/16/19 10/17/19 10/18/19 06:59 06:59 06:59 Intake Total 2313 Output Total 400 Balance 1913 Weight 63.503 kg 64.5 kg Results Laboratory Results: WBC 5.5 10^3/uL (4.0-10.5) 10/17/19 06:19 RBC 3.21 10^6/uL (3.72-5.28) L 10/17/19 06:19 Hgb 9.6 g/dL (12.0-15.5) L 10/17/19 06:19 Hct 27.9 % (36.0-47.0) L 10/17/19 06:19 MCV 87 fl (80-97) 10/17/19 06:19 MCH 29.9 pg (27.0-33.4) 10/17/19 06:19 MCHC 34.3 g/dL (32.0-36.0) 10/17/19 06:19 RDW 14.6 % (11.5-14.0) H 10/17/19 06:19 Plt Count 81 10^3/uL (150-450) L 10/17/19 06:19 Lymph % (Auto) 23.2 % (13-45) 10/17/19 06:19 [place] % (Auto) 9.0 % (3-13) 10/17/19 06:19 Eos % (Auto) 1.4 % (0-6) 10/17/19 06:19 Baso % (Auto) 0.4 % (0-2) 10/17/19 06:19 Absolute Neuts (auto) 3.6 10^3/uL (1.7-8.2) 10/17/19 06:19 Absolute Lymphs (auto) 1.3 10^3/uL (0.5-4.7) 10/17/19 06:19 Absolute Monos (auto) 0.5 10^3/uL (0.1-1.4) 10/17/19 06:19 Absolute Eos (auto) 0.1 10^3/uL (0.0-0.6) 10/17/19 06:19 Absolute Basos (auto) 0.0 10^3/uL (0.0-0.2) 10/17/19 06:19 Seg Neutrophils % 66.0 % (42-78) 10/17/19 06:19 PT 15.1 SEC (11.4-15.4) 10/17/19 06:19 INR 1.18 10/17/19 06:19 APTT 126.6 SEC (23.5-35.8) H 10/17/19 06:19 Sodium 139.2 mmol/L (137-145) 10/17/19 06:19 Potassium 3.8 mmol/L (3.6-5.0) 10/17/19 06:19 Chloride 105 mmol/L (98-107) 10/17/19 06:19 Carbon Dioxide 29 mmol/L (22-30) 10/17/19 06:19 Anion Gap 5 (5-19) 10/17/19 06:19 BUN 46 mg/dL (7-20) H 10/17/19 06:19 Creatinine 0.96 mg/dL (0.52-1.25) 10/17/19 06:19 Est GFR ( Amer) > 60 (>60) 10/17/19 06:19 Est GFR (MDRD) Non-Af 59 (>60) L 10/17/19 06:19 Glucose 127 mg/dL (75-110) H 10/17/19 06:19 POC Glucose 314 mg/dL (70-110) H 10/17/19 11:23 Calcium 8.3 mg/dL (8.4-10.2) L 10/17/19 06:19 Total Bilirubin 0.6 mg/dL (0.2-1.3) 10/16/19 00:56 Direct Bilirubin 0.2 mg/dL (0.0-0.4) 10/16/19 00:56 Neonat Total Bilirubin Not Reportable 10/16/19 00:56 Neonat Direct Bilirubin Not Reportable 10/16/19 00:56 Neonat Indirect Bili Not Reportable 10/16/19 00:56 AST 43 U/L (14-36) H 10/16/19 00:56 ALT 33 U/L (<35) 10/16/19 00:56 Alkaline Phosphatase 118 U/L (38-126) 10/16/19 00:56 Creatine Kinase 63 U/L (30-135) 10/16/19 00:56 Total Protein 6.8 g/dL (6.3-8.2) 10/16/19 00:56 Albumin 3.2 g/dL (3.5-5.0) L 10/16/19 00:56 Urine Color YELLOW 10/16/19 23:00 Urine Appearance CLEAR 10/16/19 23:00 Urine pH 5.0 (5.0-9.0) 10/16/19 23:00 Ur Specific [place] 1.015 10/16/19 23:00 Urine Protein NEGATIVE mg/dL (NEGATIVE) 10/16/19 23:00 Urine Glucose (UA) 150 mg/dL (NEGATIVE) H 10/16/19 23:00 Urine Ketones NEGATIVE mg/dL (NEGATIVE) 10/16/19 23:00 Urine Blood NEGATIVE (NEGATIVE) 10/16/19 23:00 Urine Nitrite NEGATIVE (NEGATIVE) 10/16/19 23:00 Urine Bilirubin NEGATIVE (NEGATIVE) 10/16/19 23:00 Urine Urobilinogen 2.0 mg/dL (<2.0) H 10/16/19 23:00 Ur Leukocyte Esterase MODERATE (NEGATIVE) H 10/16/19 23:00 Urine WBC (Auto) 9 /HPF 10/16/19 23:00 Urine RBC (Auto) 1 /HPF 10/16/19 23:00 Urine Bacteria (Auto) 3+ /HPF 10/16/19 23:00 Squamous Epi Cells Auto <1 /HPF 10/16/19 23:00 Urine Mucus (Auto) RARE /LPF 10/16/19 23:00 Urine Ascorbic Acid NEGATIVE (NEGATIVE) 10/16/19 23:00 POC Stool Occult Blood NEGATIVE (NEGATIVE) 10/16/19 10:00 Blood Type A POSITIVE 10/16/19 03:51 Antibody Screen POSITIVE 10/16/19 03:51 Antibody Identification Anti-E Anti-K 10/16/19 03:51 Antibody Identification Anti-E Anti-K 10/16/19 03:51 Antigen Identification E Antigen - NEGATIVE 10/16/19 03:51 Direct Antiglob Test NEGATIVE 10/16/19 03:51 Crossmatch See Detail 10/16/19 03:51 Impressions: Tibia/Fibula X-Ray 10/16/19 00:01 IMPRESSION: No acute osseous findings. Stroke Is this a Stroke Patient?: No Acute Heart Failure - Is this a Heart Failure Patient?: No
[2019-10-17 12:39] VITALS: BP 139/68
[2019-10-17] MEDS ORDERED: CLINDAMYCIN 300 MG/D5W RTU 300 MG/50 ML RTUPB IV SCH (14:00)
== END 2019-10-17 16:04 | disposition home or self-care (01) ==
LOC: ER 20:27 → INTOOBSV 10-16 15:22 → EH 10-16 15:22 → 4N 10-16 18:17
PROVIDERS: ADMIT Internal Medicine; ATTEND Internal Medicine
DX: I82.431 Acute embolism and thrombosis of right popliteal vein (principal); D64.9 Anemia, unspecified; E11.9 Type 2 diabetes mellitus without complications; M62.81 Muscle weakness (generalized); I10 Essential (primary) hypertension; Z98.818 Other dental procedure status; Z79.02 Long term (current) use of antithrombotics/antiplatelets; Z86.711 Personal history of pulmonary embolism; Z86.718 Personal history of other venous thrombosis and embolism; Z79.4 Long term (current) use of insulin; Z86.73 Personal history of transient ischemic attack (TIA), and cerebral infarction without residual deficits
CPT/HCPCS: 99285; 86900; 86901; 36415 ×2; 36430; 86870; 86850; 86880; 86922; 82962 ×2; 82550; 85025 ×2; 85610 ×2; 85730 ×2; 80048; 80053; 81001; 86920; 86902 ×5; 93970 ×2; 73590; G0378 ×3; P9016; J1644 ×2; J3490 ×4; J1815 ×2; J2270; C9113 ×2; J7030 ×2; J7050

== ENCOUNTER 2019-12-06 13:16 | Emergency (ER) | payer MEDICAID ==
--- NOTE | 2019-12-06 14:17 | ER Document Report ---
ED Medical Screen (RME) - General Chief Complaint: Leg Swelling Stated Complaint: BACK PAIN/LEG SWELLING Time Seen by Provider: 12/06/19 14:07 Primary Care Provider: SEA EATON MD [Primary Care Provider] - Follow up as needed Mode of Arrival: Ambulatory Notes: 59-year-old female presented to ED for swelling to the right leg. She does have a history of blood clots as well as chronic back pain. She is not very mobile due to the pain in her back. She states that the back of the right thigh is very tight and swollen. She also has low back pain but this is chronic the main reason she is here today is the pain and swelling to the right leg. She is on Eliquis for a previous DVT. I have greeted and performed a rapid initial assessment of this patient. A comprehensive ED assessment and evaluation of the patient, analysis of test results and completion of medical decision making process will be conducted by an additional ED providers. TRAVEL OUTSIDE OF THE [place] IN LAST 30 DAYS: No - Related Data Allergies/Adverse Reactions: Penicillins Allergy (Mild, Verified 12/06/19 14:06) Rash, itch Past Medical History - Past Medical History Cardiac Medical History: Reports: Hx Hypertension, Hx Pulmonary Embolism Denies: Hx Coronary Artery Disease, Hx Heart Attack Pulmonary Medical History: Denies: Hx Asthma, Hx Bronchitis, Hx COPD, Hx Pneumonia Neurological Medical History: Reports: Hx Cerebrovascular Accident - When she had right hip sx, pt states no deficits. Denies: Hx Seizures Endocrine Medical History: Reports: Hx Diabetes Mellitus Type 2 Renal/ Medical History: Denies: Hx Peritoneal Dialysis GI Medical History: Reports: Hx Hiatal Hernia Musculoskeltal Medical History: Reports Hx Arthritis - Back and hips Past Surgical History: Reports: Hx Appendectomy, Hx Hysterectomy, Hx Orthopedic Surgery - Back x2 and bilateral hip, Hx Tubal Ligation. Denies: Hx Pacemaker - Immunizations Hx Diphtheria, Pertussis, Tetanus Vaccination: No Physical Exam - Vital signs Vitals: Temp Pulse Resp BP Pulse Ox 98.9 F 82 18 162/96 H 99 12/06/19 13:48 12/06/19 13:48 12/06/19 13:48 12/06/19 13:48 12/06/19 13:48 Course - Vital Signs Vital signs: Temp Pulse Resp BP Pulse Ox 98.9 F 82 18 162/96 H 99 12/06/19 13:48 12/06/19 13:48 12/06/19 13:48 12/06/19 13:48 12/06/19 13:48 Doctor's Discharge - Discharge Referrals: SEA EATON MD [Primary Care Provider] - Follow up as needed
--- NOTE | 2019-12-06 14:17 | ER Document Report ---
ED Neck/Back Problem - General Chief Complaint: Leg Swelling Stated Complaint: BACK PAIN/LEG SWELLING Time Seen by Provider: 12/06/19 14:07 Primary Care Provider: SEA EATON MD [Primary Care Provider] - Follow up as needed Mode of Arrival: Ambulatory Information source: Patient Notes: 59-year-old female presented to ED for swelling to the right leg. She does have a history of blood clots as well as chronic back pain. She is not very mobile due to the pain in her back. She states that the back of the right thigh is very tight and swollen. She also has low back pain but this is chronic the main reason she is here today is the pain and swelling to the right leg. She is on Eliquis for a previous DVT. I have greeted and performed a rapid initial assessment of this patient. A comprehensive ED assessment and evaluation of the patient, analysis of test results and completion of medical decision making process will be conducted by an additional ED providers. TRAVEL OUTSIDE OF THE [place] IN LAST 30 DAYS: No - Related Data Allergies/Adverse Reactions: Penicillins Allergy (Mild, Verified 12/06/19 14:06) Rash, itch Past Medical History - Social History Family History: Reviewed & Not Pertinent - Past Medical History Cardiac Medical History: Reports: Hx Hypertension, Hx Pulmonary Embolism Denies: Hx Coronary Artery Disease, Hx Heart Attack Pulmonary Medical History: Denies: Hx Asthma, Hx Bronchitis, Hx COPD, Hx Pneumonia Neurological Medical History: Reports: Hx Cerebrovascular Accident - When she had right hip sx, pt states no deficits. Denies: Hx Seizures Endocrine Medical History: Reports: Hx Diabetes Mellitus Type 2 Renal/ Medical History: Denies: Hx Peritoneal Dialysis GI Medical History: Reports: Hx Hiatal Hernia Musculoskeletal Medical History: Reports Hx Arthritis - Back and hips Past Surgical History: Reports: Hx Appendectomy, Hx Hysterectomy, Hx Orthopedic Surgery - Back x2 and bilateral hip, Hx Tubal Ligation. Denies: Hx Pacemaker - Immunizations Hx Diphtheria, Pertussis, Tetanus Vaccination: No Physical Exam - Vital signs Vitals: Temp Pulse Resp BP Pulse Ox 98.9 F 82 18 162/96 H 99 12/06/19 13:48 12/06/19 13:48 12/06/19 13:48 12/06/19 13:48 12/06/19 13:48 Course - Vital Signs Vital signs: Temp Pulse Resp BP Pulse Ox 98.9 F 82 18 162/96 H 99 12/06/19 13:48 12/06/19 13:48 12/06/19 13:48 12/06/19 13:48 12/06/19 13:48 Discharge - Discharge Referrals: SEA EATON MD [Primary Care Provider] - Follow up as needed
[2019-12-06] MEDS ORDERED: HYDROCODONE/ACETAMINOPHEN 5-325 MG TABLET PO ONE (14:18)
--- NOTE | 2019-12-06 16:38 | ER Document Report ---
ED General - General Chief Complaint: Leg Swelling Stated Complaint: BACK PAIN/LEG SWELLING Time Seen by Provider: 12/06/19 14:07 Primary Care Provider: SEA EATON MD [Primary Care Provider] - Follow up as needed Mode of Arrival: Ambulatory Notes: 59 y/o female with history of DVT diagnosed in October currently on Eliquis presents for right leg swelling/pain for the past few days. Pt denies any chest pain or dyspnea. Pt denies fever. TRAVEL OUTSIDE OF THE [place] IN LAST 30 DAYS: No - Related Data Allergies/Adverse Reactions: Penicillins Allergy (Mild, Verified 12/06/19 14:06) Rash, itch Home Medications: metformin. elequist Past Medical History - Social History Smoking Status: Never Smoker Frequency of alcohol use: None Drug Abuse: None Family History: Reviewed & Not Pertinent Patient has suicidal ideation: No Patient has homicidal ideation: No - Past Medical History Cardiac Medical History: Reports: Hx Hypertension, Hx Pulmonary Embolism Denies: Hx Coronary Artery Disease, Hx Heart Attack Pulmonary Medical History: Denies: Hx Asthma, Hx Bronchitis, Hx COPD, Hx Pneumonia Neurological Medical History: Reports: Hx Cerebrovascular Accident - When she had right hip sx, pt states no deficits. Denies: Hx Seizures Endocrine Medical History: Reports: Hx Diabetes Mellitus Type 2 Renal/ Medical History: Denies: Hx Peritoneal Dialysis GI Medical History: Reports: Hx Hiatal Hernia Musculoskeletal Medical History: Reports Hx Arthritis - Back and hips Past Surgical History: Reports: Hx Appendectomy, Hx Hysterectomy, Hx Orthopedic Surgery - Back x2 and bilateral hip, Hx Tubal Ligation. Denies: Hx Pacemaker - Immunizations Hx Diphtheria, Pertussis, Tetanus Vaccination: No Review of Systems - Review of Systems Notes: Constitutional: Negative for fever. HENT: Negative for sore throat. Eyes: Negative for visual changes. Cardiovascular: Negative for chest pain. Respiratory: Negative for shortness of breath. Gastrointestinal: Negative for abdominal pain, vomiting or diarrhea. Genitourinary: Negative for dysuria. Musculoskeletal: Positive for right lower leg pain/swelling. Negative for back pain. Skin: Negative for rash. Neurological: Negative for headaches, weakness or numbness. 10 point ROS negative except as marked above and in HPI. Physical Exam - Vital signs Vitals: Temp Pulse Resp BP Pulse Ox 98.9 F 82 18 162/96 H 99 12/06/19 13:48 12/06/19 13:48 12/06/19 13:48 12/06/19 13:48 12/06/19 13:48 - Notes Notes: GENERAL: Well-appearing, well-nourished and in no acute distress. HEAD: Atraumatic, normocephalic. EYES: Extraocular movements intact, sclera anicteric, conjunctiva are normal. NECK: Normal range of motion, supple without lymphadenopathy or JVD. LUNGS: Breath sounds clear to auscultation bilaterally and equal. No wheezes rales or rhonchi. HEART: Regular rate and rhythm without murmurs, rubs or gallops. EXTREMITIES: Normal range of motion, no pitting or edema. No clubbing or cyanosis. RLE: Swelling noted, tenderness to calf, no erythema, not hot to touch NEUROLOGICAL: Cranial nerves II through XII grossly intact. Normal speech, normal gait. PSYCH: Normal mood, normal affect. SKIN: Warm, Dry, normal turgor, no rashes or lesions noted. Course - Re-evaluation Re-evalutation: 12/06/19 16:56 Pt has a DVT extending into thigh per dye penetrant testing technician. 12/06/19 17:02 Pt is not hypoxic. Labwork was not initially ordered. CBC, CMP, PT/INR, PTT and heparin ordered. Will admit once labwork returns. 12/06/19 19:[address] Min Tovar who states pt probably needs vascular and to be transferred due to failing outpatient treatment of DVT. 12/06/19 19:24 Called [facility] [place] to initiate transfer. 12/06/19 21:05 Spoke to Kirill vascular, at [facility] who states he will review chart and call back. 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 12/06/19 21:[address] Valentine, bass fisher transverse abdominal muscle surgeon, who states best thing is to bridge to coumadin. Recommends giving lovenox and making sure pt is able to inject it herself and then she could be switched to coumadin. States this will probably will not happen at night but may be arranged in the morning. 12/06/19 21:[address] Guillory, vascular surgeon, to discuss pt. States indications for thrombectomy include iliac/femoral occlusion and there is no indication with popliteal extending into thigh. Recommends switching to Xarelto 20 mg once daily and following up him in his office. 12/06/19 21:38 Discussed recommendations of vascular surgeon and bass fisher with pt and pt's daughter. Pt states she is compliant with Eliquis. Pt and pt's daughter choose to follow recommendations of Dr. Guillory and switching to Xarelto 20 mg once daily and following up with his office. Strict return precautions discussed. Pt and pt's daughter voice understanding and agrees with plan of care. - Vital Signs Vital signs: Temp Pulse Resp BP Pulse Ox 98.2 F 82 15 142/79 H 98 12/06/19 20:34 12/06/19 13:48 12/06/19 19:01 12/06/19 19:01 12/06/19 19:01 - Laboratory Result Diagrams: 12/06/19 17:22 12/06/19 17:22 Laboratory results interpreted by me: 12/06/19 12/06/19 17:22 17:22 Hgb 11.1 L Hct 33.1 L RDW 16.5 H Plt Count 126 L Potassium 3.5 L Carbon Dioxide 34 H AST 71 H Alkaline Phosphatase 166 H Discharge - Discharge Clinical Impression: Right leg DVT Qualifiers: Affected thrombotic vein of extremity: unspecified vein of extremity Chronicity: unspecified Qualified Code(s): I82.401 - Acute embolism and thrombosis of unspecified deep veins of right lower extremity Condition: Stable Disposition: HOME, SELF-CARE Additional Instructions: Please take Xarelto as prescribed, stop your Eliquis. Please call to follow up with vascular surgeon, Dr. Kayode Guillory, at [address] [place] [address] [id number], [place] [address]. Return immediately to ER for any worsening symptoms, including worsening pain/swelling, chest pain, shortness of breath, feeling like your leg is cold, redness to area, fever, or any other symptoms that are concerning to you. Prescriptions: Rivaroxaban [Xarelto] 20 mg PO DAILY #30 tablet Referrals: SEA EATON MD [Primary Care Provider] - Follow up in 3-5 days
[2019-12-06] MEDS ORDERED: HEPARIN SOD (PORCINE) 1,000 UNIT/ML 10 ML VIAL IV ONE (16:57)
[2019-12-06] MEDS ORDERED: HEPARIN SODIUM,PORCINE/D5W 25,000 UNIT/250 ML RTUINJ IV PRN (16:57)
[2019-12-06] MEDS ORDERED: HEPARIN SODIUM,PORCINE/D5W 25,000 UNIT/250 ML RTUINJ IV ONE (17:19)
[2019-12-06 17:36] LABS: ABSOLUTE EOSINOPHILS # (AUTO) 0.1 10^3/uL (0.0-0.6); ABSOLUTE MONOCYTES (AUTO) 0.5 10^3/uL (0.1-1.4); BASOPHILS % (AUTO) 0.6 % (0-2); EOSINOPHILS % (AUTO) 2.1 % (0-6); HEMATOCRIT 33.1 % (36.0-47.0); HEMOGLOBIN 11.1 g/dL (12.0-15.5); LYMPHOCYTES % (AUTO) 21.4 % (13-45); MEAN CORPUSCULAR HEMOGLOBIN 29.6 pg (27.0-33.4); MEAN CORPUSCULAR HGB CONC 33.5 g/dL (32.0-36.0); MEAN CORPUSCULAR VOLUME 89 fl (80-97); MONOCYTES % (AUTO) 10.3 % (3-13); PLATELET COUNT 126 10^3/uL (150-450); RED BLOOD COUNT 3.74 10^6/uL (3.72-5.28); RED CELL DISTRIBUTION WIDTH 16.5 % (11.5-14.0); SEGMENTED NEUTROPHILS % (AUTO) 65.6 % (42-78); TOTAL CELLS COUNTED % (AUTO) 100 %; WHITE BLOOD COUNT 4.5 10^3/uL (4.0-10.5)
[2019-12-06 17:42] LABS: INTERNATIONAL RATION (INR) 1.19; PARTIAL THROMBOPLASTIN TIME 25.5 SEC (23.5-35.8); PROTHROMBIN TIME 15.2 SEC (11.4-15.4)
[2019-12-06 18:28] LABS: ALBUMIN 3.9 g/dL (3.5-5.0); ALKALINE PHOSPHATASE 166 U/L (38-126); ANION GAP 6 (5-19); ASPARTATE AMINO TRANSFERASE 71 U/L (14-36); BILIRUBIN,DIRECT 0.3 mg/dL (0.0-0.4); BILIRUBIN,TOTAL 0.7 mg/dL (0.2-1.3); BLOOD UREA NITROGEN 15 mg/dL (7-20); CALCIUM 9.3 mg/dL (8.4-10.2); CARBON DIOXIDE 34 mmol/L (22-30); CHLORIDE 100 mmol/L (98-107); GLUCOSE 98 mg/dL (75-110); POTASSIUM 3.5 mmol/L (3.6-5.0); TOTAL PROTEIN 8.2 g/dL (6.3-8.2)
[2019-12-06] MEDS ORDERED: HEPARIN SOD (PORCINE) 1,000 UNIT/ML 10 ML VIAL IV PRN (19:57)
--- NOTE | 2019-12-06 21:46 | VASCULAR PRELIM REPORT ---
Provider Note Provider Note: Postive for Chronic DVT in the right thigh. in this patitne on anticoagulation.
[2019-12-06 22:05] LABS: APPEARANCE,URINE CLOUDY; BILIRUBIN,URINE NEGATIVE (NEGATIVE); COLOR,URINE YELLOW; GLUCOSE, URINE NEGATIVE (NEGATIVE); KETONES,URINE NEGATIVE (NEGATIVE); LEUKOCYTE ESTERASE,URINE LARGE (NEGATIVE); NITRITE,URINE NEGATIVE (NEGATIVE); PROTEIN,URINE 30 mg/dL (NEGATIVE); URINE SPECIFIC GRAVITY 1.014
[2019-12-06 22:33] VITALS: BP 153/76
--- NOTE | 2019-12-07 08:10 | XCELERA REPORT ---
[address] [address] Lower Extremity Venous Evaluation Procedure: Color flow and duplex imaging of the veins of the right lower extremity as well as the left Common Femoral vein. Right Sided Venous Evaluation Abnormal vessel filling, reduced compression with partial Colour flow , enlarged veins with echogenic content, from Femoral down to the Popliteal veins. Left Sided Venous Evaluation The left common femoral vein is fully compressible. Spontaneous and phasic flow is present in the left common femoral vein. Interpretation Summary Chronic, partly recanalized deep venous thrombosis in the right lower extremity. Name: ALEX SANFORD Age: 59 yrs Gender: Female : 1960 Patient Status: Emergency Patient Location: ER Study Date: 12/06/2019 04:38 PM Reason For Study: Pain swelling history DVTs Ordering Physician: ANGEL MARTÍNEZ Performed By: Abril Lam : ANGEL MARTÍNEZ > Javier Mendez
== END 2019-12-06 22:15 | disposition home or self-care (01) ==
LOC: ER 13:16
DX: I82.401 Acute embolism and thrombosis of unspecified deep veins of right lower extremity (principal); M79.661 Pain in right lower leg; I10 Essential (primary) hypertension; E11.9 Type 2 diabetes mellitus without complications; Z79.01 Long term (current) use of anticoagulants; Z79.84 Long term (current) use of oral hypoglycemic drugs; Z88.0 Allergy status to penicillin
CPT/HCPCS: 36415; 85610; 85730; 80053; 81001; 93971 ×2; J1644 ×2

== ENCOUNTER 2019-12-31 16:01 | Emergency (ER) | payer MEDICAID ==
--- NOTE | 2019-12-31 17:05 | ER Document Report ---
ED Medical Screen (RME) - General Chief Complaint: Leg Swelling Stated Complaint: LEFT LEG PAIN Time Seen by Provider: 12/31/19 16:52 Primary Care Provider: SEA EATON MD [Primary Care Provider] - Follow up as needed Notes: HPI: 59-year-old female presenting for evaluation of left leg swelling, intermittent chest tightness. Patient states she was here last week diagnosed with a DVT in the right leg feels like the right leg is more swollen, feels like the left leg is now swelling. Reports intermittent tightness across the chest no specific shortness of breath or pleuritic pain I have greeted and performed a rapid initial assessment of this patient. A comprehensive ED assessment and evaluation of the patient, analysis of test results and completion of the medical decision making process will be conducted by additional ED providers PHYSICAL EXAMINATION: GENERAL: Well-appearing, well-nourished and in no acute distress. HEAD: Atraumatic, normocephalic. EYES: sclera anicteric, conjunctiva are normal. ENT: Moist mucous membranes. NECK: Normal range of motion LUNGS: Normal work of breathing, clear to auscultation HEART: 2+ radial pulses bilaterally, regular rate and rhythm ABD: limited by positioning for exam in triage. EXTREMITIES: There is edema to bilateral lower extremities noted. NEUROLOGICAL: No focal neurological deficits. Moves all extremities spontaneously and on command. PSYCH: Normal mood, normal affect. SKIN: Warm, Dry, normal turgor, no rashes or lesions noted. TRAVEL OUTSIDE OF THE [place] IN LAST 30 DAYS: No - Related Data Allergies/Adverse Reactions: Penicillins Allergy (Mild, Verified 12/06/19 14:06) Rash, itch Home Medications: Tylenol PRN. Esomeprazole. Losartan-HCTZ. Metformin. Eliquis. Ferrous Sulfate. Docusate sodium Past Medical History - Social History Frequency of alcohol use: None Drug Abuse: None - Past Medical History Cardiac Medical History: Reports: Hx Hypertension, Hx Pulmonary Embolism Denies: Hx Coronary Artery Disease, Hx Heart Attack Pulmonary Medical History: Denies: Hx Asthma, Hx Bronchitis, Hx COPD, Hx Pneumonia Neurological Medical History: Reports: Hx Cerebrovascular Accident - When she had right hip sx, pt states no deficits. Denies: Hx Seizures Endocrine Medical History: Reports: Hx Diabetes Mellitus Type 2 Renal/ Medical History: Denies: Hx Peritoneal Dialysis GI Medical History: Reports: Hx Hiatal Hernia Musculoskeltal Medical History: Reports Hx Arthritis - Back and hips Past Surgical History: Reports: Hx Appendectomy, Hx Hysterectomy, Hx Orthopedic Surgery - Back x2 and bilateral hip, Hx Tubal Ligation. Denies: Hx Pacemaker - Immunizations Hx Diphtheria, Pertussis, Tetanus Vaccination: No Physical Exam - Vital signs Vitals: Temp Pulse Resp BP Pulse Ox 98.1 F 66 18 192/85 H 100 12/31/19 16:16 12/31/19 16:16 12/31/19 16:16 12/31/19 16:16 12/31/19 16:16 Course - Vital Signs Vital signs: Temp Pulse Resp BP Pulse Ox 98.1 F 66 18 192/85 H 100 12/31/19 16:16 12/31/19 16:16 12/31/19 16:16 12/31/19 16:16 12/31/19 16:16 Doctor's Discharge - Discharge Referrals: SEA EATON MD [Primary Care Provider] - Follow up as needed
--- NOTE | 2019-12-31 20:02 | RADIOLOGY REPORT (SQ) ---
EXAM DESCRIPTION: VENOUS UNILATERAL LOWER COMPLETED DATE/TIME: 12/31/2019 7:18 pm REASON FOR STUDY: venous doppler LLE COMPARISON: None. TECHNIQUE: Dynamic and static harrell scale and color images acquired of the left leg venous system. Se lected spectral images acquired with additional compression and augmentation maneuvers. The contralat eral common femoral vein and saphenofemoral junction were also imaged. Images stored on PACS. LIMITATIONS: None. FINDINGS: COMMON FEMORAL: Normal phasicity, compression and augmentation. No visualized echogenic ma terial on harrell scale. No defects on color images. FEMORAL: Normal compression and augmentation. No visualized echogenic material on harrell scale. No defe cts on color images. POPLITEAL: Normal compression, augmentation. No visualized echogenic material on harrell scale. No defec ts on color images. CALF VESSELS: Normal compression, augmentation. No visualized echogenic material on harrell scale. No de fects on color images. GSV and SSV: Normal compression, augmentation. No visualized echogenic material on harrell scale. No def ects on color images. ANY DEEP VENOUS INSUFFICIENCY: Not evaluated. ANY EVIDENCE OF POPLITEAL CYST: No. OTHER: No other significant finding. CONTRALATERAL COMMON FEMORAL VEIN AND SAPHENOFEMORAL JUNCTION: Normal phasicity, compression and augmentation. No visualized echogenic material on harrell scale. No de fects on color images. IMPRESSION: NO EVIDENCE OF DVT OR SVT IN THE LEFT LEG. TECHNICAL DOCUMENTATION: JOB ID: [id number] [place]-72 2010 [employer]- All Rights Reserved Reading location - IP/workstation name: [email or web address]
[2019-12-31 20:36] LABS: ABSOLUTE EOSINOPHILS # (AUTO) 0.1 10^3/uL (0.0-0.6); ABSOLUTE MONOCYTES (AUTO) 0.3 10^3/uL (0.1-1.4); BASOPHILS % (AUTO) 0.5 % (0-2); EOSINOPHILS % (AUTO) 2.3 % (0-6); HEMATOCRIT 37.3 % (36.0-47.0); HEMOGLOBIN 12.4 g/dL (12.0-15.5); LYMPHOCYTES % (AUTO) 30.4 % (13-45); MEAN CORPUSCULAR HEMOGLOBIN 29.9 pg (27.0-33.4); MEAN CORPUSCULAR HGB CONC 33.4 g/dL (32.0-36.0); MEAN CORPUSCULAR VOLUME 90 fl (80-97); MONOCYTES % (AUTO) 8.5 % (3-13); RED BLOOD COUNT 4.16 10^6/uL (3.72-5.28); RED CELL DISTRIBUTION WIDTH 16.2 % (11.5-14.0); SEGMENTED NEUTROPHILS % (AUTO) 58.3 % (42-78); TOTAL CELLS COUNTED % (AUTO) 100 %; WHITE BLOOD COUNT 3.4 10^3/uL (4.0-10.5)
[2019-12-31 20:40] LABS: PLATELET COUNT 87 10^3/uL (150-450)
[2019-12-31 20:48] LABS: INTERNATIONAL RATION (INR) 1.16; PROTHROMBIN TIME 14.9 SEC (11.4-15.4)
[2019-12-31 20:58] LABS: ALKALINE PHOSPHATASE 192 U/L (38-126); ANION GAP 9 (5-19); ASPARTATE AMINO TRANSFERASE 199 U/L (14-36); BILIRUBIN,DIRECT 0.4 mg/dL (0.0-0.4); BILIRUBIN,TOTAL 0.7 mg/dL (0.2-1.3); BLOOD UREA NITROGEN 17 mg/dL (7-20); CALCIUM 9.7 mg/dL (8.4-10.2); CARBON DIOXIDE 31 mmol/L (22-30); CHLORIDE 100 mmol/L (98-107); GLUCOSE 188 mg/dL (75-110); POTASSIUM 3.5 mmol/L (3.6-5.0); TOTAL PROTEIN 8.3 g/dL (6.3-8.2)
[2019-12-31] MEDS ORDERED: OXYCODONE-ACETAMINOPHEN 5-325 MG TABLET PO ONE (21:23)
--- NOTE | 2019-12-31 21:27 | ER Document Report ---
ED General - General Chief Complaint: Leg Swelling Stated Complaint: LEFT LEG PAIN Time Seen by Provider: 12/31/19 21:00 Primary Care Provider: SEA EATON MD [Primary Care Provider] - 01/03/20 Notes: Patient states that she has had chronic leg swelling to the left lower extremity for the past 3 years after having hip surgery. Patient states that she had a complicated surgery that has limited her range of motion. Patient states that she began to have increased left leg pain yesterday. Patient also reports lateral rib tenderness for the past 2 days. Patient states that this pain is likely due to the fact that she is unable to sit with her hips flexed at 90 degrees due to her chronic hip pain. Patient states that she frequently has to use her upper extremities to reposition herself and that she feels that she may have caused muscle pain in doing so. Patient denies any cough or cold symptoms. Patient denies any fever. Patient is currently being treated for right lower extremity DVT and is taking Eliquis. Patient reports compliance with her anticoagulation therapy. TRAVEL OUTSIDE OF THE [place] IN LAST 30 DAYS: No - HPI Quality of pain: Achy Pain Level: 4 Exacerbated by: Movement Relieved by: Remaining still Similar symptoms previously: Yes Recently seen / treated by doctor: No - Related Data Allergies/Adverse Reactions: Penicillins Allergy (Mild, Verified 12/06/19 14:06) Rash, itch Home Medications: Tylenol PRN. Esomeprazole. Losartan-HCTZ. Metformin. Eliquis. Ferrous Sulfate. Docusate sodium Past Medical History - General Information source: Patient - Social History Smoking Status: Never Smoker Frequency of alcohol use: None Drug Abuse: None Occupation: none Lives with: Alone Family History: Reviewed & Not Pertinent Patient has suicidal ideation: No Patient has homicidal ideation: No - Past Medical History Cardiac Medical History: Reports: Hx Hypertension, Hx Pulmonary Embolism Neurological Medical History: Reports: Hx Cerebrovascular Accident - When she had right hip sx, pt states no deficits. Denies: Hx Seizures Endocrine Medical History: Reports: Hx Diabetes Mellitus Type 2 Renal/ Medical History: Denies: Hx Peritoneal Dialysis GI Medical History: Reports: Hx Hiatal Hernia Musculoskeletal Medical History: Reports Hx Arthritis - Back and hips Past Surgical History: Reports: Hx Appendectomy, Hx Hysterectomy, Hx Orthopedic Surgery - Back x2 and bilateral hip, Hx Tubal Ligation. Denies: Hx Pacemaker - Immunizations Hx Diphtheria, Pertussis, Tetanus Vaccination: No Review of Systems - Review of Systems Constitutional: No symptoms reported. denies: Fever EENT: No symptoms reported Cardiovascular: Chest pain - lateral rib pain. denies: Dizziness, Lightheaded Respiratory: No symptoms reported. denies: Cough, Short of breath Gastrointestinal: No symptoms reported. denies: Abdominal pain, Nausea, Vomiting Genitourinary: No symptoms reported Female Genitourinary: No symptoms reported Musculoskeletal: Muscle pain - LLE pain, Leg swelling. denies: Back pain Skin: No symptoms reported Hematologic/Lymphatic: No symptoms reported Neurological/Psychological: No symptoms reported. denies: Headaches Physical Exam - Vital signs Vitals: Temp Pulse Resp BP Pulse Ox 98.1 F 66 18 192/85 H 100 12/31/19 16:16 12/31/19 16:16 12/31/19 16:16 12/31/19 16:16 12/31/19 16:16 - General General appearance: Appears well, Alert In distress: None - HEENT Head: Normocephalic, Atraumatic Eyes: Normal Conjunctiva: Normal Nasal: Normal Mouth/Lips: Caries Neck: Normal, Supple. No: Lymphadenopathy - Respiratory Respiratory status: No respiratory distress Chest status: Tender Breath sounds: Rales - Bilateral lower lobes. No: Nonproductive cough Chest palpation: Tender - Tenderness with palpation of lateral lower rib area bilaterally - Cardiovascular Rhythm: Regular Heart sounds: S1 appreciated, S2 appreciated Pulses: Normal: Dorsalis pedis - Abdominal Inspection: Other - Ventral hernia Distension: No distension Bowel sounds: Normal Tenderness: Nontender Organomegaly: No organomegaly - Back Back: Normal, Nontender. No: CVA tenderness - Extremities General upper extremity: Normal inspection, Normal ROM General lower extremity: Edema - Bilateral lower extremity edema, leg length discrepancy, left leg shorter than the right Arm: Normal, Nontender Elbow: Normal, Nontender Hip: Tender - Left hip joint tenderness with decreased range of motion Thigh: Normal, Nontender Knee: Nontender, Other - Swelling to bilateral knees Calf: Normal, Nontender Ankle: Tender. No: Deformity, Ecchymosis, Limited ROM Foot: Nontender, Edema - 3+ edema bilaterally - Neurological Neuro grossly intact: Yes Cognition: Normal [place] Coma Scale Eye Opening: Spontaneous [place] Coma Scale Verbal: Oriented [place] Coma Scale Motor: Obeys Commands [place] Coma Scale Total: 15 - Psychological Associated symptoms: Normal affect, Normal mood - Skin Skin Temperature: Warm Skin Moisture: Dry Skin Color: Normal Course - Re-evaluation Re-evalutation: 01/01/20 01:59 Patient presents with left ankle tenderness, patient with good pulses bilaterally, venous duplex study without any findings worrisome for acute DVT to the left lower extremity. Patient does report chronic leg pain to the left leg although states that it worsened today. Patient also presents with lateral rib tenderness. Patient feels that this is musculoskeletal pain due to the way she has to position change due to her chronic hip pain. The patient has atypical chest pain as the patient's chest pain is not suggestive of pulmonary embolus, cardiac ischemia, aortic dissection, or other serious etiology. Given the extremely low risk of these diagnoses, evaluation for these possibilities does not appear to be indicated at this time. Patient has been instructed to return if the symptoms worsen or change in any way. Patient did have elevated liver function tests. No evidence for any biliary obstruction noted on ultrasound. Patient encouraged to see her primary doctor on Friday to have her labs rechecked. She is encouraged to avoid use of alcohol at home. Chest pain in a patient without evidence of cardiac or other serious etiology on workup today. I discussed with patient that, based on their age, risk factors and emergency department testing today, the likelihood that their symptoms are related to a heart attack is very low. The patient demonstrates decision making capacity and has verbalized an understanding of these risks to me. Based on this, the patient has chosen to follow-up as an outpatient. Usual chest pain return precautions reviewed. The patient states understanding and agreement with this plan. - Vital Signs Vital signs: Temp Pulse Resp BP Pulse Ox 98.1 F 66 15 142/72 H 99 12/31/19 16:16 12/31/19 16:16 01/01/20 03:01 01/01/20 03:01 01/01/20 03:01 - Laboratory Result Diagrams: 12/31/19 20:18 12/31/19 20:18 Laboratory results interpreted by me: 12/31/19 12/31/19 12/31/19 20:18 20:18 20:18 WBC 3.4 L RDW 16.2 H Plt Count 87 L Potassium 3.5 L Carbon Dioxide 31 H Glucose 188 H AST 199 H ALT 160 H Alkaline Phosphatase 192 H NT-Pro-B Natriuret Pep 305 H Total Protein 8.3 H 01/01/20 02:02 Labs- Entire Visit 12/31/19 12/31/19 12/31/19 20:18 20:18 20:18 WBC 3.4 L RBC 4.16 Hgb 12.4 Hct 37.3 MCV 90 MCH 29.9 MCHC 33.4 RDW 16.2 H Plt Count 87 L Lymph % (Auto) 30.4 [place] % (Auto) 8.5 Eos % (Auto) 2.3 Baso % (Auto) 0.5 Absolute Neuts (auto) 2.0 Absolute Lymphs (auto) 1.0 Absolute Monos (auto) 0.3 Absolute Eos (auto) 0.1 Absolute Basos (auto) 0.0 Seg Neutrophils % 58.3 PT 14.9 INR 1.16 Sodium 139.7 Potassium 3.5 L Chloride 100 Carbon Dioxide 31 H Anion Gap 9 BUN 17 Creatinine 0.72 Est GFR ( Amer) > 60 Est GFR (MDRD) Non-Af > 60 Glucose 188 H Calcium 9.7 Total Bilirubin 0.7 Direct Bilirubin 0.4 Neonat Total Bilirubin Not Reportable Neonat Direct Bilirubin Not Reportable Neonat Indirect Bili Not Reportable AST 199 H ALT 160 H Alkaline Phosphatase 192 H Troponin I NT-Pro-B Natriuret Pep Total Protein 8.3 H Albumin 4.0 Lipase 12/31/19 12/31/19 12/31/19 20:18 20:18 20:18 WBC RBC Hgb Hct MCV MCH MCHC RDW Plt Count Lymph % (Auto) [place] % (Auto) Eos % (Auto) Baso % (Auto) Absolute Neuts (auto) Absolute Lymphs (auto) Absolute Monos (auto) Absolute Eos (auto) Absolute Basos (auto) Seg Neutrophils % PT INR Sodium Potassium Chloride Carbon Dioxide Anion Gap BUN Creatinine Est GFR ( Amer) Est GFR (MDRD) Non-Af Glucose Calcium Total Bilirubin Direct Bilirubin Neonat Total Bilirubin Neonat Direct Bilirubin Neonat Indirect Bili AST ALT Alkaline Phosphatase Troponin I 0.041 NT-Pro-B Natriuret Pep 305 H Total Protein Albumin Lipase 110.7 12/31/19 23:36 WBC RBC Hgb Hct MCV MCH MCHC RDW Plt Count Lymph % (Auto) [place] % (Auto) Eos % (Auto) Baso % (Auto) Absolute Neuts (auto) Absolute Lymphs (auto) Absolute Monos (auto) Absolute Eos (auto) Absolute Basos (auto) Seg Neutrophils % PT INR Sodium Potassium Chloride Carbon Dioxide Anion Gap BUN Creatinine Est GFR ( Amer) Est GFR (MDRD) Non-Af Glucose Calcium Total Bilirubin Direct Bilirubin Neonat Total Bilirubin Neonat Direct Bilirubin Neonat Indirect Bili AST ALT Alkaline Phosphatase Troponin I 0.017 NT-Pro-B Natriuret Pep Total Protein Albumin Lipase - Diagnostic Test Radiology reviewed: Reports reviewed - EKG Interpretation by Me EKG shows normal: Sinus rhythm Rate: Normal When compared to previous EKG there are: No significant change Discharge - Discharge Clinical Impression: Abnormal liver function test, Chest wall pain Leg pain Qualifiers: Laterality: left Qualified Code(s): M79.605 - Pain in left leg Condition: Stable Disposition: HOME, SELF-CARE Instructions: Chest Wall Pain ([facility]), Edema, Peripheral ([facility]), Leg Pain Nonspecific ([facility]), Liver Function Abnormality ([facility]), Oral Narcotic Medication ([facility]) Additional Instructions: Return immediately for any new or worsening symptoms Followup with your primary care provider, call Friday for a follow-up appointment Prescriptions: Lidocaine [Lidoderm 5% (700 mg) Transdermal Patch] 1 patch TP DAILY PRN #10 adh..patch PRN Reason: Referrals: SEA EATON MD [Primary Care Provider] - 01/03/20
--- NOTE | 2019-12-31 22:00 | RADIOLOGY REPORT (SQ) ---
Chest 2 view on 12/31/2019 at 9:42 PM CLINICAL INDICATION: Lateral rib pain COMPARISON: 10/05/2018 FINDINGS: There is evidence of calcified granulomatous disease in the chest. The lungs are otherwise clear. Cardiac, hilar and mediastinal contours are within normal limits. Pulmonary vascularity is within normal limits. Fusion hardware is noted in the lumbar and lower thoracic spine . IMPRESSION: No acute disease.
--- NOTE | 2019-12-31 23:39 | RADIOLOGY REPORT (SQ) ---
EXAM DESCRIPTION: US ABDOMEN LIMITED COMPLETED DATE/TME: 12/31/2019 21:21 CLINICAL HISTORY: 59 years, Female, RUQ pain COMPARISON: Prior CT from 01/28/2016 TECHNIQUE: Axial 2-D grayscale images of the abdomen were acquired. Doppler was utilized. LIMITATIONS: None. FINDINGS: The pancreas is poorly visualized secondary to overlying bowel gas artifact. Proximal abdominal aorta measures 1.7 cm in AP diameter. The mid to distal abdominal aorta were not well visualized. The liver is overall normal in echogenicity. Antegrade flow is documented within the main portal vein. Liver length is 14.2 cm. Gallbladder wall thickness measures 3 mm. Common bile duct diameter measures 4 mm. No gallstones. Sonographic Edmonds sign was negative. Right kidney measures 11.6 x 5.4 x 4.7 cm in size. There is no hydronephrosis. A simple cyst is noted about the inferior aspect of the right kidney measuring 2.3 x 2.3 x 2.4 cm in size. IMPRESSION: No acute sonographic abnormality. copyright 2010 [employer]- All Rights Reserved
--- NOTE | 2020-01-01 01:11 | EKG REPORT ---
SEVERITY:- ABNORMAL ECG - SINUS RHYTHM ABNORMAL T, PROBABLE ISCHEMIA, WIDESPREAD : Confirmed by: Kaylie Santos MD 01-Jan-2020 01:11:09
[2020-01-01] MEDS ORDERED: HYDROCODONE/ACETAMINOPHEN 5-325 MG (6 TAB/ER DISP) PO PRN (02:05)
[2020-01-01 03:12] VITALS: BP 142/72
== END 2020-01-01 03:20 | disposition home or self-care (01) ==
LOC: ER 16:01
DX: R94.5 Abnormal results of liver function studies (principal); R07.89 Other chest pain; M79.605 Pain in left leg; M79.89 Other specified soft tissue disorders; G89.29 Other chronic pain; I10 Essential (primary) hypertension; Z88.0 Allergy status to penicillin; Z86.711 Personal history of pulmonary embolism; Z90.710 Acquired absence of both cervix and uterus; Z98.51 Tubal ligation status; Z86.73 Personal history of transient ischemic attack (TIA), and cerebral infarction without residual deficits
CPT/HCPCS: 36415; 71046; 76705; 80053; 83690; 83880; 84484; 85025; 85610; 93005; 93010; 93971; 99284

== ENCOUNTER 2020-04-10 18:13 | Emergency (ER) | payer MEDICAID ==
--- NOTE | 2020-04-10 19:07 | ER Document Report ---
ED Medical Screen (RME) - General Chief Complaint: Fall Injury Stated Complaint: FALL/BACK AND HIP PAIN Time Seen by Provider: 04/10/20 18:57 Primary Care Provider: SEA EATON MD [Primary Care Provider] - Follow up as needed Mode of Arrival: Wheelchair Information source: Patient Notes: 60-year-old female presents to ED for complaint of severe low back pain that is making so she cannot move around due to the pain. She states that she fell this morning. She states she also dropped a large plan on her toe on Friday so now her left great toe is very painful. She also has diabetes. She states that her bilateral feet are very edematous due to blood clots. She states she was diagnosed with a blood clot a year ago and has been on Eliquis since then for b lood clots. She states she called her primary care doctor today and they told her to take some muscle relaxers but does not happen anything. She states she is taking all of her scheduled medicines as ordered and nothing is helping. I have greeted and performed a rapid initial assessment of this patient. A comprehensive ED assessment and evaluation of the patient, analysis of test results and completion of medical decision making process will be conducted by an additional ED providers. TRAVEL OUTSIDE OF THE [place] IN LAST 30 DAYS: No - Related Data Allergies/Adverse Reactions: Penicillins Allergy (Mild, Verified 04/10/20 19:02) Rash, itch Past Medical History - Social History Chew tobacco use (# tins/day): No Frequency of alcohol use: None - Past Medical History Cardiac Medical History: Reports: Hx Hypertension, Hx Pulmonary Embolism Denies: Hx Coronary Artery Disease, Hx Heart Attack Pulmonary Medical History: Denies: Hx Asthma, Hx Bronchitis, Hx COPD, Hx Pneumonia Neurological Medical History: Reports: Hx Cerebrovascular Accident - When she had right hip sx, pt states no deficits. Denies: Hx Seizures Endocrine Medical History: Reports: Hx Diabetes Mellitus Type 2 Renal/ Medical History: Denies: Hx Peritoneal Dialysis GI Medical History: Reports: Hx Hiatal Hernia Musculoskeltal Medical History: Reports Hx Arthritis - Back and hips Past Surgical History: Reports: Hx Appendectomy, Hx Hysterectomy, Hx Orthopedic Surgery - Back x2 and bilateral hip, Hx Tubal Ligation. Denies: Hx Pacemaker - Immunizations Hx Diphtheria, Pertussis, Tetanus Vaccination: No Physical Exam - Vital signs Vitals: Temp Pulse Resp BP Pulse Ox 98.8 F 80 18 170/95 H 100 04/10/20 18:31 04/10/20 18:31 04/10/20 18:31 04/10/20 18:31 04/10/20 18:31 Course - Vital Signs Vital signs: Temp Pulse Resp BP Pulse Ox 98.8 F 80 18 170/95 H 100 04/10/20 18:55 04/10/20 18:31 04/10/20 18:31 04/10/20 18:31 04/10/20 18:31 Doctor's Discharge - Discharge Referrals: SEA EATON MD [Primary Care Provider] - Follow up as needed
[2020-04-10 20:23] LABS: ABSOLUTE EOSINOPHILS # (AUTO) 0.1 10^3/uL (0.0-0.6); ABSOLUTE LYMPHOCYTES (AUTO) 0.8 10^3/uL (0.5-4.7); ABSOLUTE MONOCYTES (AUTO) 0.4 10^3/uL (0.1-1.4); ABSOLUTE NEUT (AUTO) 3.4 10^3/uL (1.7-8.2); BASOPHILS % (AUTO) 0.4 % (0-2); EOSINOPHILS % (AUTO) 2.9 % (0-6); HEMATOCRIT 35.1 % (36.0-47.0); LYMPHOCYTES % (AUTO) 17.6 % (13-45); MEAN CORPUSCULAR HEMOGLOBIN 30.3 pg (27.0-33.4); MEAN CORPUSCULAR HGB CONC 34.1 g/dL (32.0-36.0); MEAN CORPUSCULAR VOLUME 89 fl (80-97); MONOCYTES % (AUTO) 7.8 % (3-13); PLATELET COUNT 112 10^3/uL (150-450); RED BLOOD COUNT 3.94 10^6/uL (3.72-5.28); RED CELL DISTRIBUTION WIDTH 14.3 % (11.5-14.0); SEGMENTED NEUTROPHILS % (AUTO) 71.3 % (42-78); TOTAL CELLS COUNTED % (AUTO) 100 %; WHITE BLOOD COUNT 4.7 10^3/uL (4.0-10.5)
[2020-04-10 20:31] LABS: INTERNATIONAL RATION (INR) 1.45; PROTHROMBIN TIME 17.7 SEC (11.4-15.4)
[2020-04-10 20:32] LABS: PARTIAL THROMBOPLASTIN TIME 44.5 SEC (23.5-35.8)
--- NOTE | 2020-04-10 20:40 | RADIOLOGY REPORT (SQ) ---
EXAM DESCRIPTION: CLINICAL HISTORY: 60 years Female Injury to the left great toe COMPARISON: None TECHNIQUE: Three views. FINDINGS: Osteoporosis. Suspected fracture of the distal tuft of the great toe with mild detachment of the tuft compared to the rest of the bone. Mild soft tissue swelling in the great toe. Additional soft tissue swelling in the anterolateral aspect of the left foot. IMPRESSION: Fracture of the distal tuft of the great toe.
[2020-04-10 20:42] LABS: ALBUMIN 4.1 g/dL (3.5-5.0); ALKALINE PHOSPHATASE 156 U/L (38-126); ANION GAP 9 (5-19); ASPARTATE AMINO TRANSFERASE 42 U/L (14-36); BILIRUBIN,TOTAL 0.8 mg/dL (0.2-1.3); BLOOD UREA NITROGEN 18 mg/dL (7-20); CALCIUM 9.4 mg/dL (8.4-10.2); CARBON DIOXIDE 27 mmol/L (22-30); CHLORIDE 99 mmol/L (98-107); GLUCOSE 247 mg/dL (75-110); POTASSIUM 3.5 mmol/L (3.6-5.0); TOTAL PROTEIN 8.1 g/dL (6.3-8.2)
--- NOTE | 2020-04-10 20:46 | RADIOLOGY REPORT (SQ) ---
EXAM DESCRIPTION: CLINICAL HISTORY: 60 years Female Bilateral pedal edema COMPARISON: 12/31/2019 TECHNIQUE: PA and lateral views. FINDINGS: Significant however in the lower thoracic spine extending towards the lumbar spine. Borderline cardiomediastinal silhouette. Suggestion of mild vascular congestion not visible on previous chest x-ray. Possible small right effusion. IMPRESSION: Question minimal CHF.
--- NOTE | 2020-04-10 20:52 | RADIOLOGY REPORT (SQ) ---
EXAM DESCRIPTION: XR LUMBAR SPINE ANTEROPOSTERIOR, LATERAL, AND OBLIQUES COMPLETED DATE/TME: 04/10/2020 19:03 CLINICAL HISTORY: 60 years, Female, Fall low back pain COMPARISON: CT abdomen pelvis 01/28/2016. TECHNIQUE: Five views of the lumbar spine. FINDINGS: Extensive posterior hardware. Trans pedicle screws from T11 to S2. Does not involve L3 which is chronically compressed. Mild chronic anterior subluxation at L3-4 unchanged. No overt acute fracture dislocation on this study.
--- NOTE | 2020-04-10 21:23 | RADIOLOGY REPORT (SQ) ---
EXAM DESCRIPTION: US EXTREMITY VEINS BILATERAL COMPLETED DATE/TME: 04/10/2020 19:03 CLINICAL HISTORY: Bilateral pedal edema history of clots COMPARISON: None Available TECHNIQUE: Duplex images of the common femoral, greater saphenous, superficial femoral, popliteal, peroneal, anterior and posterior tibial veins of both lower extremities were submitted. FINDINGS: There is nonocclusive acute DVT within the right distal superficial femoral vein and popliteal vein. Tech notes indicate preliminary results were given to the referring physician. There is subcutaneous edema. All of the remaining above-mentioned venous structures demonstrate normal spontaneous flow with respiratory phasicity and were fully compressible. IMPRESSION: Acute nonocclusive DVT within the distal right superficial femoral vein and right popliteal vein. No sonographic evidence of acute DVT within the left lower extremity.
--- NOTE | 2020-04-10 21:24 | ER Document Report ---
ED Fall - General Chief Complaint: Fall Injury Stated Complaint: FALL/BACK AND HIP PAIN Time Seen by Provider: 04/10/20 18:57 Primary Care Provider: SEA EATON MD [Primary Care Provider] - Follow up as needed TIGRE ENGLAND DO [ACTIVE STAFF] - Follow up as needed Mode of Arrival: Wheelchair Information source: Patient Notes: HPI: 60-year-old female who presents today after she states she got up and lost her balance falling onto her buttocks. She fell onto carpet. History of chronic back pain with 2 surgeries previously. Patient denies any weakness or numbness of her legs. Patient states she has some chronic lower extremity edema with a DVT in December on Eliquis. She denies any shortness of breath or chest pain. No headache or head trauma. No neck pain. Patient also states 2 days ago she dropped a bottle on her left toe. ROS: See HPI All other review of systems reviewed and otherwise negative Reviewed vital signs and nursing note as charted by RN. PHYSICAL EXAM: CONSTITUTIONAL: Alert and oriented and responds appropriately to questions. Well-appearing; well-nourished HEAD: Normocephalic; atraumatic EYES: PERRL; full extraocular range of motion ENT: Normal nose; no rhinorrhea; moist mucous membranes; pharynx without lesions noted NECK: Supple without meningismus; non-tender to palpation of the midline spine; no cervical lymphadenopathy, no masses CARD: Regular rate and rhythm; no murmurs; symmetric distal pulses RESP: Normal chest excursion without splinting or tachypnea; no anterior posterior rib tenderness; breath sounds clear and equal bilaterally; no wheezes, no rhonchi, no rales ABD/GI: Normal bowel sounds; minimally distended abdomen shows an old midline with a history of a ventral hernia with no tenderness; soft, non-tender to deep palpation of all 4 quadrants of the abdomen BACK: The back shows an old midline back surgical scar with no swelling, tenderness, erythema, or step-offs to the thoracic or mid lumbar spine. Patient has some lower lumbar tenderness without erythema or step-offs EXT: Normal ROM in all joints; non-tender to palpation; 1-2+ pitting edema to bilateral lower extremities which the patient states is chronic. Patient has some bruising to the dorsal aspect of the left great toe. Nail is intact. Good distal tip sensation and capillary refill SKIN: No acute lesions noted NEURO: CN 2-12 intact; 5/5 bilateral upper and lower extremity strength with sensation intact to light touch PSYCH: The patient's mood and manner are appropriate. Grooming and personal hygiene are appropriate. TRAVEL OUTSIDE OF THE [place] IN LAST 30 DAYS: No - Related data Allergies/Adverse Reactions: Penicillins Allergy (Mild, Verified 04/10/20 19:02) Rash, itch Past Medical History - General Information source: Patient - Social History Smoking Status: Never Smoker Chew tobacco use (# tins/day): No Frequency of alcohol use: None Family History: Reviewed & Not Pertinent Patient has homicidal ideation: No - Past Medical History Cardiac Medical History: Reports: Hx Hypertension, Hx Pulmonary Embolism Denies: Hx Coronary Artery Disease, Hx Heart Attack Pulmonary Medical History: Denies: Hx Asthma, Hx Bronchitis, Hx COPD, Hx Pneumonia Neurological Medical History: Reports: Hx Cerebrovascular Accident - When she had right hip sx, pt states no deficits. Denies: Hx Seizures Endocrine Medical History: Reports: Hx Diabetes Mellitus Type 2 Renal/ Medical History: Denies: Hx Peritoneal Dialysis GI Medical History: Reports: Hx Hiatal Hernia Musculoskeletal Medical History: Reports Hx Arthritis - Back and hips Past Surgical History: Reports: Hx Appendectomy, Hx Hysterectomy, Hx Orthopedic Surgery - Back x2 and bilateral hip, Hx Tubal Ligation. Denies: Hx Pacemaker - Immunizations Hx Diphtheria, Pertussis, Tetanus Vaccination: No Physical Exam - Vital signs Vitals: Temp Pulse Resp BP Pulse Ox 98.8 F 80 18 170/95 H 100 04/10/20 18:31 04/10/20 18:31 04/10/20 18:31 04/10/20 18:31 04/10/20 18:31 Course - Re-evaluation Re-evalutation: Given the above history and physical examination, the triage provider ordered multiple x-rays as well as bilateral lower extremity Doppler studies, as well as a BNP, EKG, and basic and cardiac labs. Patient denies any and all chest pain or shortness of breath. She is a history of a DVT in December. 04/10/20 21:24 Labs, BNP, and x-rays as recorded. I did speak directly to the radiologist and he states he sees no acute fractures. I was not able to visualize the entire coccyx, but I do not believe a coccyx fracture would not require surgical intervention. Patient has no weakness or numbness of the legs. She states her chronic lower extremity edema has not increased. Doppler ultrasound shows what appears to be a resolving clot compared to hold ultrasound in December of her right leg. Patient is on Eliquis. Patient does appear to have a left distal toe fracture consistent with the story. I will place the patient in a hard sole shoe. I do not believe any other imaging or laboratory work is necessary at this moment. 04/10/20 21:50 I spoke to the radiologist. He states he is unsure whether that DVT is acute or chronic 1 from the previous ultrasound. Patient is on Eliquis. She denies any calf pain or leg swelling above baseline. She denies any and all chest pain or shortness of breath. She is not tachycardic hypoxic. Given the above history and physical and extensive imaging as recorded, with no focal weakness or numbness of the legs, with a left toe fracture, we will place the patient in a postoperative shoe and discharge the patient home with strict return precautions and follow-up with orthopedics in the primary care physician. - Vital Signs Vital signs: Temp Pulse Resp BP Pulse Ox 98.8 F 80 18 170/95 H 100 04/10/20 18:55 04/10/20 18:31 04/10/20 18:31 04/10/20 18:31 04/10/20 18:31 - Laboratory Result Diagrams: 04/10/20 20:10 04/10/20 20:10 Laboratory results interpreted by me: 04/10/20 04/10/20 04/10/20 20:10 20:10 20:10 Hct 35.1 L RDW 14.3 H Plt Count 112 L PT 17.7 H APTT 44.5 H Sodium 134.7 L Potassium 3.5 L Glucose 247 H AST 42 H ALT 41 H Alkaline Phosphatase 156 H NT-Pro-B Natriuret Pep 04/10/20 20:10 Hct RDW Plt Count PT APTT Sodium Potassium Glucose AST ALT Alkaline Phosphatase NT-Pro-B Natriuret Pep 205 H Discharge - Discharge Clinical Impression: Accidental fall Qualifiers: Encounter type: initial encounter Qualified Code(s): W19.XXXA - Unspecified fall, initial encounter Toe fracture, left Qualifiers: Encounter type: initial encounter Toe: great toe Fracture type: closed Phalanx: proximal Fracture alignment: nondisplaced Qualified Code(s): S92.415A - Nondisplaced fracture of proximal phalanx of left great toe, initial encounter for closed fracture Contusion of lower back Qualifiers: Encounter type: initial encounter Qualified Code(s): S30.0XXA - Contusion of l ower back and pelvis, initial encounter Condition: Good Disposition: HOME, SELF-CARE Additional Instructions: Come back immediately for any increased pain, change in location or quality of pain, incontinence, weakness or numbness of the legs, increased swelling of the legs, chest pain, shortness of breath, fevers, or any other acute problems. Please follow-up with orthopedics regarding your left toe fracture. Please f ollow-up with your primary care physician for repeat ultrasound of your lower extremities to evaluate for the chronicity and resolution of the clot in your legs. Continue to take your blood thinning medication as prescribed. Referrals: SEA EATON MD [Primary Care Provider] - Follow up as needed TIGRE ENGLAND DO [ACTIVE STAFF] - Follow up as needed
[2020-04-10 22:29] VITALS: BP 166/81
== END 2020-04-10 22:59 | disposition home or self-care (01) ==
LOC: ER 18:13
DX: S30.0XXA Contusion of lower back and pelvis, initial encounter (principal); S92.415A Nondisplaced fracture of proximal phalanx of left great toe, initial encounter for closed fracture; W18.30XA Fall on same level, unspecified, initial encounter; G89.29 Other chronic pain; M54.9 Dorsalgia, unspecified; I10 Essential (primary) hypertension; E11.9 Type 2 diabetes mellitus without complications; Z90.710 Acquired absence of both cervix and uterus; Z86.73 Personal history of transient ischemic attack (TIA), and cerebral infarction without residual deficits; Z88.0 Allergy status to penicillin; Z79.02 Long term (current) use of antithrombotics/antiplatelets; Z86.718 Personal history of other venous thrombosis and embolism
CPT/HCPCS: 36415; 71046; 72110; 80053; 83880; 85025; 85610; 85730; 93970; 99284

== ENCOUNTER 2020-04-12 13:40 | Emergency (ER) | payer MEDICAID ==
--- NOTE | 2020-04-12 14:43 | ER Document Report ---
ED Medical Screen (RME) - General Chief Complaint: Numbness of Arm Stated Complaint: ARM NUMBNESS Time Seen by Provider: 04/12/20 14:33 Primary Care Provider: SEA EATON MD [Primary Care Provider] - Follow up tomorrow Mode of Arrival: Wheelchair Information source: Patient Notes: 60-year-old female presented to ED for complaint of numbness to the right arm. She does have pain to the neck and to the right shoulder. She states she has a history of diabetes and high blood pressure and she has had 2 back surgeries and 2 hip surgeries. She states she did fall on Friday. She states she was seen in the emergency room on Friday and discharged home. Patient is alert and oriented but hard of hearing. TRAVEL OUTSIDE OF THE [place] IN LAST 30 DAYS: No - HPI Onset: Yesterday Onset/Duration: Gradual Quality of pain: Sharp Severity: Moderate Pain Level: 3 Associated Symptoms: Other - Home health aide states minimal walking at home, numbness to the right arm Exacerbated by: Movement Relieved by: Denies Similar symptoms previously: Yes Recently seen / treated by doctor: Yes - Related Data Allergies/Adverse Reactions: Penicillins Allergy (Mild, Verified 04/12/20 14:33) Rash, itch Past Medical History - General Information source: Patient - Social History Cigarette use (# per day): No Lives with: Alone Family history: Reviewed & Not Pertinent - Past Medical History Cardiac Medical History: Reports: Hx Hypertension, Hx Pulmonary Embolism Pulmonary Medical History: Reports: None Neurological Medical History: Reports: Hx Cerebrovascular Accident - When she had right hip sx, pt states no deficits. Denies: Hx Seizures Endocrine Medical History: Reports: Hx Diabetes Mellitus Type 2 Renal/ Medical History: Reports: None Malignancy Medical History: Reports: None GI Medical History: Reports: Hx Hiatal Hernia Musculoskeltal Medical History: Reports Hx Arthritis - Back and hips , Reports Hx Musculoskeletal Deformity, Reports Hx Musculoskeletal Trauma Skin Medical History: Reports None Psychiatric Medical History: Reports: None Traumatic Medical History: Reports: Hx Spine Fracture Infectious Medical History: Reports: None Past Surgical History: Reports: Hx Appendectomy, Hx Hysterectomy, Hx Orthopedic Surgery - back x2 and bilateral hip, Hx Tubal Ligation - Immunizations Hx Diphtheria, Pertussis, Tetanus Vaccination: No Review of Systems - Review of Systems Constitutional: No symptoms reported EENT: No symptoms reported Cardiovascular: No symptoms reported Respiratory: No symptoms reported Gastrointestinal: No symptoms reported Genitourinary: No symptoms reported Female Genitourinary: No symptoms reported Musculoskeletal: No symptoms reported, Back pain, Muscle pain, Muscle stiffness, Neck pain, Other - Numbness to the right arm Skin: No symptoms reported Hematologic/Lymphatic: No symptoms reported Neurological/Psychological: No symptoms reported -: Yes All other systems reviewed and negative Physical Exam - Vital signs Vitals: Temp Pulse Resp BP Pulse Ox 98.9 F 89 14 147/67 H 97 04/12/20 13:47 04/12/20 13:47 04/12/20 13:47 04/12/20 13:47 04/12/20 13:47 Interpretation: Normal - General General appearance: Appears well, Alert - HEENT Head: Normocephalic, Atraumatic Eyes: Normal Pupils: PERRL - Respiratory Respiratory status: No respiratory distress Chest status: Nontender Breath sounds: Normal Chest palpation: Normal - Cardiovascular Rhythm: Regular Heart sounds: Normal auscultation Murmur: No - Abdominal Inspection: Normal Distension: No distension Bowel sounds: Normal Tenderness: Nontender Organomegaly: No organomegaly - Back Back: Normal, Tender, Vertebra tenderness, Other - Multiple previous surgeries. No: Deformity/step-off, CVA tenderness - Extremities General upper extremity: Normal inspection, Nontender, Normal color, Normal ROM, Normal temperature General lower extremity: Normal inspection, Nontender, Normal color, Normal ROM, Normal temperature, Normal weight bearing. No: Hiro's sign - Neurological Neuro grossly intact: Yes Cognition: Normal Orientation: AAOx4 [place] Coma Scale Eye Opening: Spontaneous Zach[place] Coma Scale Verbal: Oriented Zach[place]h Coma Scale Motor: Obeys Commands Zachariah Coma Scale Total: 15 Speech: Normal Motor strength normal: LUE, RUE, LLE, RLE Sensory: Normal - Psychological Associated symptoms: Normal affect, Normal mood - Skin Skin Temperature: Warm Skin Moisture: Dry Skin Color: Normal Course - Re-evaluation Re-evalutation: 04/12/20 16:23 X-ray showed no new acute changes. She has had multiple neck surgeries and back surgeries. She has equal grants assistant to the left and right hand. She has full range of motion to both shoulders elbows arms hands. She has equal grants assistant. She has equal movement to both hips knees and feet. She does have chronic disability with chronic pain. Have given her written report of the x-rays and have instructed her to follow-up with her radiosonde specialist and her primary care. Patient verbalized understanding and agreement with treatment plan and patient will be discharged home. - Vital Signs Vital signs: Temp Pulse Resp BP Pulse Ox 98.6 F 82 20 164/82 H 100 04/12/20 16:15 04/12/20 16:15 04/12/20 16:15 04/12/20 16:15 04/12/20 16:15 - Diagnostic Test Radiology reviewed: Image reviewed, Reports reviewed Doctor's Discharge - Discharge Clinical Impression: Numbness and tingling of right arm Condition: Stable Disposition: HOME, SELF-CARE Additional Instructions: Numbness or Paresthesia Definition: Numbness and tingling are decreased or abnormal sensations caused by altered sensory nerve function. Description: The feeling of having a foot "fall asleep" is a familiar one. This same combination of numbness and tingling can occur in any region of the body and may be caused by a wide variety of disorders. Sensations such as these, which occur without any associated stimulus, are called paresthesias. Other types of paresthesias include feelings of cold, warmth, burning, itching, and skin crawling. Causes: Sensation is carried to the brain by neurons (nerve cells) running from the outer parts of the body to the spinal cord in bundles called nerves. In the spinal cord, these neurons make connections with other neurons that run up to the brain. Paresthesias are caused by disturbances in the function of neurons in the sensory pathway. This disturbance can occur in the central nervous system (the brain and spinal cord), the nerve roots that are attached to the spinal cord, or the peripheral nervous system (nerves outside the brain and spinal cord). Peripheral disturbances are the most common cause of paresthesias. "Falling asleep" occurs when the blood supply to a nerve is cut off-a condition called ischemia. Ischemia usually occurs when an artery is compressed as it passes through a tightly flexed joint. Sleeping with the arms above the head or sitting with the legs tightly crossed frequently cause numbness and tingling. Direct compression of the nerve also causes paresthesias. Compression can be short-lived, as when a heavy backpack compresses the nerves passing across the shoulders. Compression may also be chronic. Chronic nerve compression occurs in entrapment syndromes. The most common example is carpal tunnel syndrome. Carpal tunnel syndrome occurs when the median nerve is compressed as it passes through a narrow channel in the wrist. Repetitive motion or prolonged vibration can cause the lining of the channel to swell and press on the nerve. Chronic nerve root compression, or radiculopathy, can occur in disk disease or spinal arthritis. Other causes of paresthesias related to disorders of the peripheral nerves include: * Metabolic or nutritional disturbances. These disturbances include diabetes, hypothyroidism (a condition caused by too little activity of the thyroid gland), alcoholism, malnutrition, and vitamin B12 deficiency. Trauma. Trauma includes injuries that crush, sever, or pull on nerves. * Inflammation. * Connective tissue disease. These diseases include arthritis, systemic lupus erythematosus (a chronic inflammatory disease that affects many systems of the body, including the nervous system), polyarteritis nodosa (a vascular disease that causes widespread inflammation and ischemia of small and medium-size arteries), and Sj&ouml;gren's syndrome (a disorder marked by insufficient moisture in the tear ducts, salivary glands, and other glands). * Toxins. Toxins include heavy metals (metallic elements such as arsenic, lead, and mercury which can, in large amounts, cause poisoning), certain antibiotics and chemotherapy agents, solvents, and overdose of pyridoxine (vitamin B6). * Malignancy. * Infections. Infections include Lyme disease, human immunodeficiency virus (HIV), and leprosy. * Hereditary disease. These diseases include Wwxiusu-Dpztc-Zdawk disease (a hereditary disorder that causes wasting of the leg muscles, resulting in malformation of the foot), porphyria (a group of inherited disorders in which there is abnormally increased production of substances called porphyrins), and Rogelio-Brown's syndrome (a hereditary disorder of the nerve root). Paresthesias can also be caused by central nervous system disturbances, including stroke, TIA (transient ischemic attack), tumor, trauma, multiple sclerosis, or infection. Symptoms: Sensory nerves supply or innervate particular regions of the body. Determining the distribution of symptoms is an important way to identify the nerves involved. For instance, the median nerve innervates the thumb, the first two fingers, half of the ring finger, and the part of the hand to which they connect. The ulnar nerve innervates the other half of the ring finger, the little finger, and the remainder of the hand. Distribution of symptoms may also aid diagnosis of the underlying disease. Diabetes usually causes a symmetrical "glove and stocking" distribution in the hands and feet. Multiple sclerosis may cause symptoms in several, widely areas. Other symptoms may accompany paresthesias, depending on the type and severity of the nerve disturbance. For instance, weakness may accompany damage to nerves that carry both sensory and motor neurons. (Motor neurons are those that carry messages outward from the brain.) Diagnosis: A careful history of the patient is needed for a diagnosis of paresthesias. The medical history should focus on the onset, duration, and location of symptoms. The history may also reveal current related medical problems and recent or past exposure to drugs, toxins, infection, or trauma. The family medical history may suggest a familial disorder. A work history may rev eal repetitive motion, chronic vibration, or industrial chemical exposure. The physical and neurological examination tests for distribution of symptoms and alterations in reflexes, sensation, or strength. The distribution of symptoms may be mapped by successive stimulation over the affected area of the body. Lab tests for paresthesia may include blood tests and urinalysis to detect metabolic or nutritional abnormalities. Other tests are used to look for specific suspected causes. Nerve conduction velocity tests, electromyography, and imaging studies of the affected area may be employed. Nerve biopsy may be indicated in selected cases. Treatment: Treatment of paresthesias depends on the underlying cause. For limbs that have "fallen asleep," restoring circulation by stretching, exercising, or massaging the affected limb can quickly dissipate the numbness and tingling. If the paresthesia is caused by a chronic disease such as diabetes or occurs as a complication of treatments such as chemotherapy, most treatments are aimed at relieving symptoms. Anti-inflammatory drugs such as aspirin or ibuprofen are recommended if symptoms are mild. In more difficult cases, antidepressant drugs such as amitriptyline (Elavil) are sometimes prescribed. These drugs are given at a much lower dosage for this purpose than for relief of depression. They are thought to help because they alter the body's perception of pain. In severe cases, opium derivatives such as codeine can be prescribed. Currently trials are being done to determine whether treatment with human nerve growth factor will be effective in regenerating the damaged nerves. Alternative treatment: Several alternative treatments are available to help relieve symptoms of paresthesia. Nutritional therapy includes supplementation with B complex vitamins, especially vitamin B 12 (intramuscular injection of vitamin B12 is most effective). Vitamin supplements should be used cautiously however. Overdose of Vitamin B6 is one of the causes of paresthesias. People experiencing paresthesia should also avoid alcohol. Acupuncture and massage are said to relieve symptoms. Self-massage with aromatic oils is sometimes helpful. The application of topical ointments containing capsaicin, the substance that makes hot peppers hot, provides relief for some. It may also be helpful to wear loosely fitting shoes and clothing. None of these alternatives should be used in place of traditional therapy for the underlying condition. Prognosis: Treating the underlying disorder may reduce the occurrence of paresthesias. Paresthesias resulting from damaged nerves may persist throughout or even beyond the recovery period. The overall prognosis depends on the cause. Prevention: Preventing the underlying disorder may reduce the incidence of paresthesias. For those with frequent paresthesias caused by ischemia, changes in posture may help. Continue with your current medications, physical therapy, exercises, and normal activity. Please follow-up with your primary care doctor and radiosonde specialist as soon as possible. I have given you a written report of your x- rays to follow-up with your primary care doctor. You do have equal range of motion and strength in both arms. Both arms are weak due to your current conditions. I have greeted and performed a rapid initial assessment of this patient. A comprehensive ED assessment and evaluation of the patient, analysis of test results and completion of medical decision making process will be conducted by an additional ED providers. Forms: Elevated Blood Pressure Referrals: SEA EATON MD [Primary Care Provider] - Follow up tomorrow
--- NOTE | 2020-04-12 15:37 | RADIOLOGY REPORT (SQ) ---
EXAM DESCRIPTION: CERV SP 4 OR 5 VIEWS IMAGES COMPLETED DATE/TIME: 04/12/2020 3:10 pm REASON FOR STUDY: Pain in neck previous injuries COMPARISON: None. NUMBER OF VIEWS: Five views. TECHNIQUE: AP, lateral, obliques and odontoid radiographic images acquired of the cervical spine. LIMITATIONS: Suboptimal lateral cross-table and right oblique views. FINDINGS: MINERALIZATION: Heterogeneous sclerotic appearance of the osseous structures. ALIGNMENT: There is straightening of the normal lordotic curvature of the cervical spine. Evaluation of the cervicothoracic junction is limited. There is no evidence of atlantoaxial dissociation on th e odontoid view. VERTEBRAE: The image cervical vertebral body heights are preserved. DISCS: The imaged intervertebral disc spaces are narrowed and there are anterolateral osteophytes. FORAMINA: Evaluation of the right neural foramina is limited due to suboptimal technique. There is n o osteophytic foraminal stenosis on the left. LATERAL AND POSTERIOR ELEMENTS: No fracture or malalignment. HARDWARE: None in the spine. SOFT TISSUES: No abnormality. OTHER: No other finding. IMPRESSION: Suboptimal radiographic views of the cervical spine. There is no discrete fracture or m alalignment. If clinical concern for an injury persists then consider a CT for further evaluation. TECHNICAL DOCUMENTATION: JOB ID: [id number] 2010 [employer]- All Rights Reserved Reading location - IP/workstation name: [email or web address]
--- NOTE | 2020-04-12 15:38 | RADIOLOGY REPORT (SQ) ---
EXAM DESCRIPTION: SHOULDER RIGHT 2 OR MORE VIEWS IMAGES COMPLETED DATE/TIME: 04/12/2020 3:10 pm REASON FOR STUDY: Pain in right shoulder with numbness down the arm COMPARISON: None. NUMBER OF VIEWS: Three views. TECHNIQUE: Internal rotation, external rotation, and Y view images acquired of the right shoulder. LIMITATIONS: None. FINDINGS: MINERALIZATION: Osteopenia. BONES: No acute fracture. JOINTS: Osteoarthrosis of the acromioclavicular joint. There is no dislocation. VISUALIZED LUNGS AND RIBS: No pneumothorax or rib fracture. SOFT TISSUES: No radiopaque foreign body. OTHER: No other finding. IMPRESSION: No acute osseous abnormality of the right shoulder. TECHNICAL DOCUMENTATION: JOB ID: [id number] 2010 [employer]- All Rights Reserved Reading location - IP/workstation name: [email or web address]
[2020-04-12 16:17] VITALS: BP 164/82
== END 2020-04-12 16:31 | disposition home or self-care (01) ==
LOC: ER 13:40
DX: R20.0 Anesthesia of skin (principal); M54.2 Cervicalgia; M25.511 Pain in right shoulder; W19.XXXD Unspecified fall, subsequent encounter; I10 Essential (primary) hypertension; E11.9 Type 2 diabetes mellitus without complications; Z98.890 Other specified postprocedural states
CPT/HCPCS: 72050; 99283

== ENCOUNTER → 2020-04-16 | Emergency (ER) | payer MEDICAID ==
[~2020-04-16] MED LIST changes: +ETOMIDATE INJ/PF 20 MG/10 ML SDV IV ONE; +FENTANYL CITRATE INJ/PF 100 MCG/2 ML AMPUL IV ONE; +LEVETIRACETAM 1000 MG/NACL-ISO 1,000 MG/100 ML RTUPB IV ONE; +LORAZEPAM INJ 2 MG/1 ML VIAL IV ONE; +MIDAZOLAM 2 MG/2 ML INJ IV ONE; +MIDAZOLAM HCL 50 MG/100 ML RTUINJ IV PRN; +PROPOFOL 1,000 MG/100 ML INFUS..BTL IV PRN; +PROTHROMBIN COMPLEX CONCENTRATE 1000 UNIT IV ONE; +SUCCINYLCHOLINE CHLORIDE INJ 200 MG/10 ML VIAL IV ONE; +SUCCINYLCHOLINE CHLORIDE INJ 200 MG/10 ML VIAL ONE; +TRANEXAMIC ACID INJ/PF 1,000 MG/10 ML SDV IV ONE; +VECURONIUM BROMIDE INJ 10 MG VIAL IV ONE; +[UNRECOGNIZED DRUG - MIXTURE] IV ONE
[2020-04-16 18:02] LABS: ABSOLUTE EOSINOPHILS # (AUTO) 0.1 10^3/uL (0.0-0.6); ABSOLUTE LYMPHOCYTES (AUTO) 1.2 10^3/uL (0.5-4.7); ABSOLUTE MONOCYTES (AUTO) 0.6 10^3/uL (0.1-1.4); BASOPHILS % (AUTO) 0.5 % (0-2); HEMATOCRIT 36.5 % (36.0-47.0); HEMOGLOBIN 12.7 g/dL (12.0-15.5); MEAN CORPUSCULAR HGB CONC 34.8 g/dL (32.0-36.0); MEAN CORPUSCULAR VOLUME 89 fl (80-97); MONOCYTES % (AUTO) 11.6 % (3-13); PLATELET COUNT 138 10^3/uL (150-450); RED BLOOD COUNT 4.09 10^6/uL (3.72-5.28); RED CELL DISTRIBUTION WIDTH 14.4 % (11.5-14.0); SEGMENTED NEUTROPHILS % (AUTO) 61.9 % (42-78); TOTAL CELLS COUNTED % (AUTO) 100 %; WHITE BLOOD COUNT 4.9 10^3/uL (4.0-10.5)
--- NOTE | 2020-04-16 18:03 | ER Document Report ---
ED General - General Chief Complaint: S/S of Possible Stroke Stated Complaint: POSSIBLE STROKE Time Seen by Provider: 04/16/20 17:45 Primary Care Provider: SEA EATON MD [Primary Care Provider] - Follow up as needed TRAVEL OUTSIDE OF THE [place] IN LAST 30 DAYS: No - HPI Notes: Patient is a 60-year-old female with a history of pulmonary embolus, on Eliquis, who presents to the emergency department for evaluation of right-sided facial droop, right-sided weakness. Abrupt onset at 1625. Family called because she started having abnormal twitching movements on her right side as well. The patient states she does have a headache. She really cannot describe it to me. No recent head injuries per her. She has been diagnosed as a stroke and mini stroke in the past. - Related Data Allergies/Adverse Reactions: Penicillins Allergy (Mild, Verified 04/12/20 14:33) Rash, itch Home Medications: Losartan/HCTZ 50/12-1/2 mg daily, Lasix 40 mg daily, simvastatin 40 mg daily, docusate as needed, metformin 500 mg twice a day, Flexeril 5 mg 3 times daily as needed, Eliquis 5 mg twice a day Past Medical History - General Information source: Patient, Emergency Med Personnel, [facility] Records - Social History Smoking Status: Unknown if Ever Smoked Family History: Reviewed & Not Pertinent - Past Medical History Cardiac Medical History: Reports: Hx DVT, Hx Hypertension, Hx Pulmonary Embolism Denies: Hx Heart Attack Pulmonary Medical History: Denies: Hx Asthma, Hx Bronchitis, Hx COPD, Hx Pneumonia Neurological Medical History: Reports: Hx Cerebrovascular Accident - When she had right hip sx, pt states no deficits. Denies: Hx Seizures Endocrine Medical History: Reports: Hx Diabetes Mellitus Type 2 GI Medical History: Reports: Hx Hiatal Hernia Musculoskeletal Medical History: Reports Hx Arthritis - Back and hips , Reports Hx Musculoskeletal Deformity, Reports Hx Musculoskeletal Trauma Traumatic Medical History: Reports: Hx Spine Fracture Past Surgical History: Reports: Hx Appendectomy, Hx Hysterectomy, Hx Orthopedic Surgery - back x2 and bilateral hip, Hx Tubal Ligation - Immunizations Hx Diphtheria, Pertussis, Tetanus Vaccination: No Review of Systems - Review of Systems Neurological/Psychological: See HPI -: Yes All other systems reviewed and negative Physical Exam - Vital signs Vitals: Temp 97.9 F 04/16/20 17:45 - Notes Notes: 60-year-old female who appears older than her stated age. She has what appears to be focal seizure-like activity in the right side of the face, with twitching of the right upper extremity and flexion at the wrist. Head is normocephalic and atraumatic, pupils are equal round, reactive to light. Oral mucosa is moist. Uvula is midline. Heart is regular rate and rhythm, lungs are clear to auscultation bilaterally. Abdomen is soft, nontender, normoactive bowel sounds. Patient is awake and alert, oriented x3. She has right-sided facial droop, slurred speech. Sensation is mildly diminished to the lower half of the face. Patient has flaccid paralysis of the right lower extremity, 3 out of 5 strength in the right upper extremity with associated hyperreflexia. Course - Re-evaluation Re-evalutation: 04/16/20 18:12 Patient presents to the emergency department for evaluation with focal seizures, new neurological deficit. I immediately found out that the patient is in fact on Eliquis, is a history of saddle pulmonary embolus, iliac vein occlusion. Thus I knew she was not a candidate for any sort of systemic TPA. Unfortunately, however, I was notified by CT staff that the patient has developed a large intracranial bleed. Upon returning back to the emergency department, the patient's blood pressure is normal in the 130s over 80s. Her seizure activity seems to have slowed. She is stable at this time. I have spoken to [facility] pharmacy, have requested an order for K Centra. Patient is notified of findings. Setting up transport to a tertiary care center. 04/16/20 18:44 Because of the patient's extensive clotting history, including saddle pulmonary embolus, I did not believe that tranexamic acid was appropriate treatment. She is stabilized, but continued to be drowsy. I was concerned about loss of airway protection. Decision was made to intubate. This went without complication. Please see separate procedure note. Awaiting Kcentra from pharmacy. Phone call currently pending at this time from [facility] for acceptance. 04/16/20 19:13 Patient was hypertensive following intubation, was given Versed push. Her blood pressure still remained mildly elevated, so sedation was changed to propofol. I spoke with Brenda Salvador, on-call at [facility]. She accepted the patient on behalf of Dr. Lopez, they are doing a weather check to evaluate for helicopter transport. I am still awaiting pharmacy on-call to retrieve the Kce ntra. It was advised by Ms. Salvador that the tranexamic acid be infused. This was ordered. 04/17/20 02:07 I was notified that in fact, just prior to being evacuated by EMS, the patient did receive the Kcentra. - Vital Signs Vital signs: Temp Pulse Resp BP Pulse Ox 99.4 F 94 18 153/79 H 100 04/16/20 20:11 04/16/20 18:18 04/16/20 20:11 04/16/20 20:11 04/16/20 20:11 - Laboratory Result Diagrams: 04/16/20 17:49 04/16/20 17:49 Laboratory results interpreted by me: 04/16/20 04/16/20 04/16/20 17:49 17:49 17:49 RDW 14.4 H Plt Count 138 L PT 18.9 H APTT 44.5 H Potassium 3.5 L Chloride 96 L Carbon Dioxide 31 H Glucose 241 H AST 45 H Alkaline Phosphatase 172 H Total Protein 8.3 H - Diagnostic Test Radiology reviewed: Image reviewed, Reports reviewed - EKG Interpretation by Me Additional EKG results interpreted by me: 04/16/20 18:18 Sinus mechanism with a rate of 96 bpm. PVC noted. Normal axis, borderline prolonged QT interval. ST depression and widespread T wave inversions, LVH with strain versus ischemia. Perhaps slight worsening since last study performed December 31, 2019. Procedures - Intubation Orotracheal Time of Intubation: 18:38 Mallampati Classification: Class 2 Medications: Etomidate, Succinylcholine Intubation method: Orotracheal Blade type: Peng Blade size: 3 ETT size: 7.5 ETT secured at: Teeth - 22 Breath Sounds after Intubation: Equal End tidal CO2 confirmed: Yes Critical Care Note - Critical Care Note Total time excluding time spent on procedures (mins): 45 Discharge - Discharge Clinical Impression: Intracranial hemorrhage Condition: Stable Disposition: [facility], [facility]1983 Admitting Provider: John Referrals: SEA EATON MD [Primary Care Provider] - Follow up as needed
[2020-04-16 18:05] LABS: INTERNATIONAL RATION (INR) 1.57; PROTHROMBIN TIME 18.9 SEC (11.4-15.4)
[2020-04-16 18:06] LABS: PARTIAL THROMBOPLASTIN TIME 44.5 SEC (23.5-35.8)
[2020-04-16 18:16] LABS: ALBUMIN 4.1 g/dL (3.5-5.0); ALKALINE PHOSPHATASE 172 U/L (38-126); ANION GAP 10 (5-19); ASPARTATE AMINO TRANSFERASE 45 U/L (14-36); BILIRUBIN,TOTAL 0.9 mg/dL (0.2-1.3); BLOOD UREA NITROGEN 18 mg/dL (7-20); CALCIUM 9.5 mg/dL (8.4-10.2); CARBON DIOXIDE 31 mmol/L (22-30); CHLORIDE 96 mmol/L (98-107); CREATINE KINASE 46 U/L (30-135); GLUCOSE 241 mg/dL (75-110); POTASSIUM 3.5 mmol/L (3.6-5.0); TOTAL PROTEIN 8.3 g/dL (6.3-8.2)
[2020-04-16 18:28] LABS: CREATINE KINASE MB 1.44 ng/mL (<4.55); TROPONIN I 0.016 ng/mL
--- NOTE | 2020-04-16 18:31 | RADIOLOGY REPORT (SQ) ---
EXAM DESCRIPTION: CHEST SINGLE VIEW IMAGES COMPLETED DATE/TIME: 04/16/2020 5:12 pm REASON FOR STUDY: t2 stroke alert. COMPARISON: 10/05/2018 EXAM PARAMETERS: NUMBER OF VIEWS: One view. TECHNIQUE: Single frontal radiographic view of the chest acquired. RADIATION DOSE: NA LIMITATIONS: None. FINDINGS: LUNGS AND PLEURA: No opacities, masses or pneumothorax. No pleural effusion. MEDIASTINUM AND HILAR STRUCTURES: No masses. Contour normal. HEART AND VASCULAR STRUCTURES: Heart normal in size. Normal vasculature. BONES: No acute findings. HARDWARE: None in the chest. OTHER: No other significant finding. IMPRESSION: NO ACUTE RADIOGRAPHIC FINDING IN THE CHEST. TECHNICAL DOCUMENTATION: JOB ID: [id number] 2010 [employer]- All Rights Reserved Reading location - IP/workstation name: [email or web address]
--- NOTE | 2020-04-16 18:48 | RADIOLOGY REPORT (SQ) ---
EXAM DESCRIPTION: CTA HEAD IMAGES COMPLETED DATE/TIME: 04/16/2020 5:16 pm REASON FOR STUDY: CVA COMPARISON: CT head, 03/31/2018 TECHNIQUE: Axial images acquired through the brain without intravenous contrast. Images reviewed wi th bone, brain and subdural windows. Additional sagittal and coronal reconstructions were generated. Images stored on PACS. All CT scanners at this facility use dose modulation, iterative reconstruction, and/or weight based d osing when appropriate to reduce radiation dose to as low as reasonably achievable (ALARA). [facility]: Dose Right [facility]: CareDose [facility]: Dose Right [facility]: Teradose 4D [facility]: Smart Gift Card Combo RADIATION DOSE: CT Rad equipment meets quality standard of care and radiation dose reduction techniq ues were employed. CTDIvol: 53.2 mGy. DLP: 1044 mGy-cm. mGy. LIMITATIONS: None. FINDINGS: VENTRICLES: Normal size and contour. CEREBRUM: There is an acute intracranial hemorrhage in the posterior left parietal lobe measuring 3.1 x 2.1 cm. Mild surrounding vasogenic edema and mild mass effect with flattening of the sulci in thi s region. There is a subarachnoid component with blood extending along the posterior parietal sulci and to the interhemispheric falx. No midline shift or evidence of herniation. Chronic encephalomala iggy and gliosis in the inferior left parietal lobe and left occipital and temporal lobes. 8 mm focus of hemorrhage in the left posterior temporal lobe, probably subarachnoid blood. No surrounding vaso genic edema at this location. Mild patchy periventricular and deep white matter hypodense attenuation is stable. There is extensive intracranial atherosclerosis. CEREBELLUM: No masses. No hemorrhage. No alteration of density. No evidence for acute infarction. EXTRAAXIAL SPACES: No fluid collections. No masses. ORBITS AND GLOBE: No intra- or extraconal masses. Normal contour of globe without masses. CALVARIUM: Motion obscures some detail. Within the limits of the exam there is no evidence of acute fracture. PARANASAL SINUSES: No fluid or mucosal thickening. SOFT TISSUES: No mass or hematoma. OTHER: No other significant finding. IMPRESSION: 1. Acute parenchymal hemorrhage in the left posterior parietal lobe. Some component of subarachnoid hemorrhage extends to the interhemispheric falx and the sulci of the left parietal lobe. There is mi ld surrounding vasogenic edema with no evidence of herniation. 2. Chronic encephalomalacia and gliosis in the left posterior parietal/occipital and temporal lobes, stable from prior. 3. Extensive intracranial atherosclerosis. EVIDENCE OF ACUTE STROKE: YES. Hemorrhagic stroke in the left posterior parietal region. COMMENT: Findings discussed with Dr. haile on 04/16/2028 at 1838 hours. Quality ID # [id number]: Final reports with documentation of one or more dose reduction techniques (e.g., Au tomated exposure control, adjustment of the mA and/or kV according to patient size, use of iterative reconstruction technique) TECHNICAL DOCUMENTATION: JOB ID: [id number] 2010 [employer]- All Rights Reserved Reading location - IP/workstation name: [email or web address]
--- NOTE | 2020-04-16 19:09 | RADIOLOGY REPORT (SQ) ---
EXAM DESCRIPTION: CHEST SINGLE VIEW IMAGES COMPLETED DATE/TIME: 04/16/2020 5:52 pm REASON FOR STUDY: ETT placement COMPARISON: None. EXAM PARAMETERS: NUMBER OF VIEWS: One view. TECHNIQUE: Single frontal radiographic view of the chest acquired. RADIATION DOSE: NA LIMITATIONS: None. FINDINGS: LUNGS AND PLEURA: No opacities, masses or pneumothorax. No pleural effusion. MEDIASTINUM AND HILAR STRUCTURES: No masses. Contour normal. HEART AND VASCULAR STRUCTURES: Heart normal in size. Normal vasculature. BONES: No acute findings. HARDWARE: Endotracheal tube is present in the upper trachea with tip approximately 6.2 cm above the c clay[place]. Esophagogastric tube tip and side-hole are below the diaphragm within the stomach. [place] n rods in the lower thoracic and upper lumbar spine, unchanged. OTHER: No other significant finding. IMPRESSION: 1. Interval placement of endotracheal tube and esophagogastric tube in good position. 2. No acute cardiopulmonary disease. TECHNICAL DOCUMENTATION: JOB ID: [id number] 2010 [employer]- All Rights Reserved Reading location - IP/workstation name: [id number]
--- NOTE | 2020-04-16 19:16 | ER Document Report ---
ED General - General Chief Complaint: S/S of Possible Stroke Stated Complaint: POSSIBLE STROKE Time Seen by Provider: 04/16/20 17:50 Primary Care Provider: SEA EATON MD [Primary Care Provider] - Follow up as needed TRAVEL OUTSIDE OF THE [place] IN LAST 30 DAYS: No - HPI Notes: Patient is a 60-year-old female brought into the emergency department for evaluation. At onset of 1625, patient developed right-sided facial droop, right leg weakness. It seemed to progress. Family found her to have some "twitching movements" and brought her to the emergency department for further evaluation. The patient complained of a mild headache. She denies any visual changes. She has been compliant with her medications, which do include Eliquis. Patient did not note this, but she did have a fall 5 days ago. This was brought to my attention later by the patient's daughter. - Related Data Allergies/Adverse Reactions: Penicillins Allergy (Mild, Verified 04/12/20 14:33) Rash, itch Home Medications: Losartan/HCTZ 50/12-1/2 mg daily, Lasix 40 mg daily, simvastatin 40 mg daily, docusate as needed, metformin 500 mg twice a day, Flexeril 5 mg 3 times daily as needed, Eliquis 5 mg twice a day Past Medical History - General Information source: Patient, Emergency Med Personnel, [facility] Records - Social History Smoking Status: Unknown if Ever Smoked Family History: Reviewed & Not Pertinent Patient has homicidal ideation: No - Past Medical History Cardiac Medical History: Reports: Hx DVT, Hx Hypertension, Hx Pulmonary Embolism Denies: Hx Heart Attack Pulmonary Medical History: Denies: Hx Asthma, Hx Bronchitis, Hx COPD, Hx Pneumonia Neurological Medical History: Reports: Hx Cerebrovascular Accident - When she had right hip sx, pt states no deficits. Denies: Hx Seizures Endocrine Medical History: Reports: Hx Diabetes Mellitus Type 2 GI Medical History: Reports: Hx Hiatal Hernia Musculoskeletal Medical History: Reports Hx Arthritis - Back and hips , Reports Hx Musculoskeletal Deformity, Reports Hx Musculoskeletal Trauma Traumatic Medical History: Reports: Hx Spine Fracture Past Surgical History: Reports: Hx Appendectomy, Hx Hysterectomy, Hx Orthopedic Surgery - back x2 and bilateral hip, Hx Tubal Ligation - Immunizations Hx Diphtheria, Pertussis, Tetanus Vaccination: No Review of Systems - Review of Systems Neurological/Psychological: See HPI -: Yes All other systems reviewed and negative Physical Exam - Vital signs Vitals: Temp 97.9 F 04/16/20 17:45 - Notes Notes: Is a 60-year-old female who appears her stated age, no acute distress. On initial exam, she has clearly apparent facial droop, has right-sided facial twitching and right arm twitching, flexion and extension at the wrist, consistent with focal seizure activity. Vital signs reviewed, please refer to carla holguin. Head is normocephalic, atraumatic. Pupils equal round, reactive to light. Neck is supple without meningismus. Heart is regular rate and rhythm. Lungs are clear to auscultation bilaterally. Abdomen is soft, nontender, normoactive bowel sounds throughout. Extremities without cyanosis, clubbing. Posterior calves are nontender. Peripheral pulses are equal. Skin is warm and dry. Patient is awake and alert, oriented to person, place, time. She has diminished sensation to the right side of the face, clear facial droop, dysarthria noted. She has 3 out of 5 strength on the right upper extremity, flaccid paralysis of the right lower extremity. Normal strength and reflexes on the left. She is hyperreflexive on the right. Sensation is intact to left side, diminished to the right arm, and absent to the right leg. Course - Vital Signs Vital signs: Temp Pulse Resp BP Pulse Ox 99.4 F 94 18 153/79 H 100 04/16/20 20:11 04/16/20 18:18 04/16/20 20:11 04/16/20 20:11 04/16/20 20:11 - Laboratory Result Diagrams: 04/16/20 17:49 04/16/20 17:49 Laboratory results interpreted by me: 04/16/20 04/16/20 04/16/20 17:49 17:49 17:49 RDW 14.4 H Plt Count 138 L PT 18.9 H APTT 44.5 H Potassium 3.5 L Chloride 96 L Carbon Dioxide 31 H Glucose 241 H AST 45 H Alkaline Phosphatase 172 H Total Protein 8.3 H - Diagnostic Test Radiology reviewed: Image reviewed, Reports reviewed Radiology results interpreted by me: 04/17/20 02:06 Chest X-Ray 04/16/20 17:49 IMPRESSION: NO ACUTE RADIOGRAPHIC FINDING IN THE CHEST. Head CTA 04/16/20 17:51 IMPRESSION: 1. Acute parenchymal hemorrhage in the left posterior parietal lobe. Some component of subarachnoid hemorrhage extends to the interhemispheric falx and the sulci of the left parietal lobe. There is mild surrounding vasogenic edema with no evidence of herniation. 2. Chronic encephalomalacia and gliosis in the left posterior parietal/occipital and temporal lobes, stable from prior. 3. Extensive intracranial atherosclerosis. EVIDENCE OF ACUTE STROKE: YES. Hemorrhagic stroke in the left posterior parietal region. Chest X-Ray 04/16/20 18:40 IMPRESSION: 1. Interval placement of endotracheal tube and esophagogastric tube in good position. 2. No acute cardiopulmonary disease. Critical Care Note - Critical Care Note Total time excluding time spent on procedures (mins): 50 Discharge - Discharge Clinical Impression: Intracranial hemorrhage Condition: Stable Disposition: [facility] Referrals: SEA EATON MD [Primary Care Provider] - Follow up as needed
[2020-04-16 20:30] VITALS: BP 153/79
--- NOTE | 2020-04-16 22:45 | EKG REPORT ---
SEVERITY:- ABNORMAL ECG - SINUS RHYTHM VENTRICULAR PREMATURE COMPLEX LEFT ATRIAL ABNORMALITY PROBABLE LVH WITH SECONDARY REPOL ABNRM BORDERLINE PROLONGED QT INTERVAL : Confirmed by: Kaylie Santos MD 16-Apr-2020 22:44:18
== END | disposition short-term general hospital (02) ==
LOC: ER 17:44
DX: I60.9 Nontraumatic subarachnoid hemorrhage, unspecified (principal); G83.11 Monoplegia of lower limb affecting right dominant side; R29.810 Facial weakness; R47.81 Slurred speech; R20.8 Other disturbances of skin sensation; R56.9 Unspecified convulsions; I49.3 Ventricular premature depolarization; I11.9 Hypertensive heart disease without heart failure; E11.9 Type 2 diabetes mellitus without complications; Z79.01 Long term (current) use of anticoagulants; Z79.899 Other long term (current) drug therapy; Z79.84 Long term (current) use of oral hypoglycemic drugs; Z86.711 Personal history of pulmonary embolism
CPT/HCPCS: 93005; 99291; 51702; 96375; 96365; 36415; 82553; 82550; 85025; 85610; 85730; 80053; 84484; 71045; 70496; 94660; 93010; 31500; J2250; J3010; J3490 ×4; J2704; J2060; J0330; J1953; C9132